=== PATIENT | female | born 1975 | race Caucasian/White ===

== ENCOUNTER 2018-05-27 13:19 | Inpatient (IN) | payer MEDICARE, MEDICAID ==
[~2018-05-27] VITALS: Ht 165.1 cm; Wt 65.3 kg
[~2018-05-27 13:19] MED LIST: DIVA500T52 PO; OLAN10TA3 PO
[2018-05-27 15:12] VITALS: BP 97/59
[2018-05-27] MEDS ORDERED: LORazepam 2 MG TABLET PO PRN (15:30)
[2018-05-27] MEDS ORDERED: HALOPERIDOL 5 MG TABLET PO PRN (15:30)
[2018-05-27] MEDS ORDERED: ZOLPIDEM TARTRATE 10 MG TABLET PO PRN (15:30)
[2018-05-27 16:00] VITALS: BP 106/70
[2018-05-27] MEDS ORDERED: MAGNESIUM HYDROXIDE SUSPENSION 30 ML UDCUP PO PRN (16:30)
[2018-05-27] MEDS ORDERED: LOPERAMIDE HCL 2 MG CAPSULE PO PRN (16:30)
[2018-05-27] MEDS ORDERED: IBUPROFEN 400 MG TABLET PO PRN (16:30)
[2018-05-27] MEDS ORDERED: GuaiFENesin/D-METHORPHAN [SUGAR-FREE] 200-20MG/10 ML SYRUP UDCUP PO PRN (16:30)
[2018-05-27] MEDS ORDERED: ONDANSETRON HCL 4 MG TABLET PO PRN (16:30)
[2018-05-27] MEDS ORDERED: PETROLATUM,WHITE 71 GM JELLY TP PRN (16:30)
[2018-05-27] MEDS ORDERED: ALBUTEROL SULFATE HFA 90 MCG/PUFF 8 GM INHALER IH PRN (16:30)
[2018-05-27] MEDS ORDERED: NICOTINE 14 MG/24 HOUR PATCH TD PRN (16:30)
[2018-05-27] MEDS ORDERED: DOCUSATE SODIUM 100 MG CAPSULE PO PRN (16:30)
[2018-05-27] MEDS ORDERED: MAG HYDROX/AL HYDROX/SIMETH ES 30 ML SUSPENSION UDCUP PO PRN (16:30)
[2018-05-27] MEDS ORDERED: CloNIDine HCL 0.1 MG TABLET PO PRN (16:30)
[2018-05-27] MEDS ORDERED: ACETAMINOPHEN 325 MG TABLET PO PRN (16:30)
[2018-05-27] MEDS ORDERED: PNEUMOCOCCAL VACCINE POLYVALENT 0.5 ML VIAL [PPSV23] IM ONE ×2 (20:30)
[2018-05-27] MEDS: DIVALPROEX SODIUM 500 MG ER TABLET PO SCH (20:36)
[2018-05-28 03:53] VITALS: BP 116/60
[2018-05-28] MEDS: OLANZapine 10 MG TABLET PO SCH ×2 (08:30→17:03)
[2018-05-28 08:32] VITALS: BP 100/60
[2018-05-28 08:53] LABS: BASOPHILS % (AUTO) 0.5 % (0.0-2.0); EOSINOPHILS % (AUTO) 1.2 % (1.0-6.0); HEMATOCRIT 38.1 % (36-46); HEMOGLOBIN 12.7 g/dL (12.0-16.0); LYMPHOCYTES # (AUTO) 2.5 K/uL (1.0-4.8); LYMPHOCYTES % (AUTO) 45.4 % (22.0-44.0); MEAN CORPUSCULAR HEMOGLOBIN 30.3 pg (26.0-34.0); MEAN CORPUSCULAR HGB CONC 33.4 G/dL (31.0-37.0); MEAN CORPUSCULAR VOLUME 91 fL (80-100); MONOCYTES # (AUTO) 0.4 K/uL (0.1-1.0); MONOCYTES % (AUTO) 8.3 % (2.0-9.0); NEUTROPHILS # (AUTO) 2.4 K/uL (1.8-7.7); NEUTROPHILS % (AUTO) 44.6 % (40.0-70.0); PLATELET COUNT (AUTO) 271 K/uL (150-450); RED CELL DISTRIBUTION WIDTH 13.9 % (11.5-14.5)
[2018-05-28 09:24] LABS: ALANINE AMINOTRANSFERASE 20 U/L (12-78); ALBUMIN 3.1 g/dL (3.4-5.0); ALKALINE PHOSPHATASE 73 U/L (46-116); ANION GAP 10 mmol/L (8-16); ASPARTATE AMINOTRANSFERASE 20 U/L (15-37); BILIRUBIN,TOTAL 0.2 mg/dL (0.1-1.0); CALCIUM, TOTAL 8.5 mg/dL (8.8-10.5); CARBON DIOXIDE 26 mmol/L (22-29); CHLORIDE 103 mmol/L (98-107); CHOL/HDL RATIO 2.4 (3.9-5.7); CHOLESTEROL 192 mg/dL (131-200); CREATININE 0.81 mg/dL (0.60-1.30); FREE T4 (FREE THYROXINE) 1.08 ng/dL (0.76-1.46); GLOMERULAR FILTR. RATE CALC > 60 mL/min (>60); GLUCOSE,RANDOM 81 mg/dL (70-110); HCG,QUANTITATIVE < 1 mIU/mL (0-6); HDL CHOLESTEROL 81 mg/dL (40-60); LDL CHOL (CALC.) 95 mg/dL (0-130); SODIUM SERUM 139 mmol/L (136-145); THYROID STIMULATING HORMONE 3.85 uIU/mL (0.36-3.74); TOTAL PROTEIN, SERUM 6.9 g/dL (6.4-8.2); TRIGLYCERIDES 79 mg/dL (15-150); UREA NITROGEN, BLOOD 17 mg/dL (7-18)
[2018-05-28 09:30] LABS: HEMOGLOBIN A1C 4.9 % (4.5-6.2)
[2018-05-28 16:09] VITALS: BP 111/68
[2018-05-28] MEDS: DIVALPROEX SODIUM 500 MG ER TABLET PO SCH (20:37)
[2018-05-29 08:43] VITALS: BP 104/68
[2018-05-29] MEDS: OLANZapine 10 MG TABLET PO SCH ×2 (08:49→16:36)
[2018-05-29 08:57] LABS: APPEARANCE,URINE CLEAR (CLEAR); BILIRUBIN,URINE NEGATIVE (NEGATIVE); GLUCOSE, URINE (UA) NEGATIVE (NEGATIVE); KETONES,URINE TRACE mg/dL (NEGATIVE); LEUKOCYTE ESTERASE ,URINE NEGATIVE (NEGATIVE); NITRATE,URINE NEGATIVE (NEGATIVE); OCCULT BLOOD,URINE NEGATIVE (NEGATIVE); PROTEIN,URINE NEGATIVE (NEGATIVE); UROBILINOGEN,URINE 0.2 mg/dL (<=1.0)
[2018-05-29 09:05] LABS: AMPHET/METH SCREEN,URINE NEGATIVE (NEGATIVE); BARBITURATE SCREEN, URINE NEGATIVE (NEGATIVE); BENZODIAZEPINES SCREEN,URINE NEGATIVE (NEGATIVE); CANNABINOID SCREEN,URINE NEGATIVE (NEGATIVE); COCAINE SCREEN,URINE NEGATIVE (NEGATIVE); METHADONE SCREEN, URINE NEGATIVE (NEGATIVE); OPIATE SCREEN,URINE NEGATIVE (NEGATIVE)
[2018-05-29 09:10] LABS: PHENCYCLIDINE SCREEN,URINE NEGATIVE (NEGATIVE)
[2018-05-29 17:36] VITALS: BP 100/58
[2018-05-29] MEDS: DIVALPROEX SODIUM 500 MG ER TABLET PO SCH (20:41)
[2018-05-30 05:42] VITALS: BP 109/67
[2018-05-30 08:36] VITALS: BP 102/60
[2018-05-30] MEDS: OLANZapine 10 MG TABLET PO SCH ×2 (10:11→16:32)
[2018-05-30 16:14] VITALS: BP 110/63
[2018-05-30] MEDS: DIVALPROEX SODIUM 500 MG ER TABLET PO SCH (20:57)
[2018-05-31 00:17] VITALS: BP 100/71
[2018-05-31] MEDS: OLANZapine 10 MG TABLET PO SCH ×2 (08:36→16:41)
[2018-05-31 16:09] VITALS: BP_SYST 100
[2018-05-31] MEDS: DIVALPROEX SODIUM 500 MG ER TABLET PO SCH (20:35)
[2018-06-01 04:30] VITALS: BP 112/78
[2018-06-01 08:00] VITALS: BP 129/66
[2018-06-01] MEDS: OLANZapine 10 MG TABLET PO SCH (08:08)
== END 2018-06-01 14:50 | disposition home or self-care (01) | DRG 885 ==
LOC: B2X 15:32
PROVIDERS: ADMIT Psychiatry & Neurology Psychiatry; ATTEND Psychiatry & Neurology Psychiatry
DX: F25.0 Schizoaffective disorder, bipolar type (principal); Z28.21 Immunization not carried out because of patient refusal; Z59.0 Homelessness; J45.909 Unspecified asthma, uncomplicated; F41.0 Panic disorder [episodic paroxysmal anxiety]; F17.200 Nicotine dependence, unspecified, uncomplicated; F10.10 Alcohol abuse, uncomplicated; E78.5 Hyperlipidemia, unspecified; E03.9 Hypothyroidism, unspecified; R45.86 Emotional lability; Z71.6 Tobacco abuse counseling
CPT/HCPCS: 80307; 83036; 84439; 84443; 87081

== ENCOUNTER 2021-04-29 15:51 | Emergency (ER) | payer MEDICARE, MEDICAID ==
[~2021-04-29] VITALS: Ht 172.7 cm; Wt 72.7 kg
[~2021-04-29 15:51] MED LIST changes: +DIVA-80 PO; -DIVA500T52 PO; -OLAN10TA3 PO; +OLAN10TA74 PO
[2021-04-29 15:53] VITALS: BP 104/68
[2021-04-29 16:43] LABS: BASOPHILS % (AUTO) 0.5 % (0.0-2.0); EOSINOPHILS % (AUTO) 0.8 % (1.0-6.0); HEMATOCRIT 42.7 % (36-46); HEMOGLOBIN 14.5 g/dL (12.0-16.0); LYMPHOCYTES # (AUTO) 2.4 K/uL (1.0-4.8); LYMPHOCYTES % (AUTO) 35.1 % (22.0-44.0); MEAN CORPUSCULAR HEMOGLOBIN 32.7 pg (26.0-34.0); MEAN CORPUSCULAR VOLUME 96 fL (80-100); MONOCYTES # (AUTO) 0.5 K/uL (0.1-1.0); MONOCYTES % (AUTO) 7.6 % (2.0-9.0); NEUTROPHILS # (AUTO) 3.8 K/uL (1.8-7.7); PLATELET COUNT (AUTO) 205 K/uL (150-450); RED BLOOD CELL COUNT(AUTO) 4.45 MIL/uL (4.00-5.20); RED CELL DISTRIBUTION WIDTH 13.7 % (11.5-14.5)
[2021-04-29 16:52] LABS: AMPHET/METH SCREEN,URINE NEGATIVE (NEGATIVE); BARBITURATE SCREEN, URINE NEGATIVE (NEGATIVE); BENZODIAZEPINES SCREEN,URINE NEGATIVE (NEGATIVE); CANNABINOID SCREEN,URINE NEGATIVE (NEGATIVE); COCAINE SCREEN,URINE NEGATIVE (NEGATIVE); METHADONE SCREEN, URINE NEGATIVE (NEGATIVE); OPIATE SCREEN,URINE NEGATIVE (NEGATIVE)
[2021-04-29 16:52] LABS: ANION GAP 14 mmol/L (8-16); CALCIUM, TOTAL 8.8 mg/dL (8.8-10.5); CARBON DIOXIDE 27 mmol/L (22-29); CHLORIDE 100 mmol/L (98-107); CREATININE 1.06 mg/dL (0.60-1.30); GLOMERULAR FILTR. RATE CALC 56 mL/min (>60); GLUCOSE,RANDOM 107 mg/dL (70-110); POTASSIUM 3.8 mmol/L (3.5-5.1); SODIUM SERUM 141 mmol/L (136-145); UREA NITROGEN, BLOOD 16 mg/dL (7-18)
[2021-04-29 16:53] LABS: PHENCYCLIDINE SCREEN,URINE NEGATIVE (NEGATIVE)
[2021-04-29 17:05] LABS: ALANINE AMINOTRANSFERASE 25 U/L (12-78); ALBUMIN 3.6 g/dL (3.4-5.0); ALKALINE PHOSPHATASE 84 U/L (46-116); ASPARTATE AMINOTRANSFERASE 20 U/L (15-37); BILIRUBIN,TOTAL 0.3 mg/dL (0.1-1.0); HCG,QUANTITATIVE < 1 mIU/mL (0-6); TOTAL PROTEIN, SERUM 7.2 g/dL (6.4-8.2)
[2021-04-29] MEDS ORDERED: LORazepam 1 MG TABLET PO ONE (18:15)
== END 2021-04-29 20:02 | disposition home or self-care (01) ==
LOC: EMS 15:57
DX: F32.9 Major depressive disorder, single episode, unspecified (principal); F17.210 Nicotine dependence, cigarettes, uncomplicated; Z88.0 Allergy status to penicillin; Z88.8 Allergy status to other drugs, medicaments and biological substances
CPT/HCPCS: 36415; 80053; 80307; 84702; 85025; 99284; G0480

== ENCOUNTER 2021-07-19 20:08 | Inpatient (IN) | payer MEDICARE, MEDICAID ==
[~2021-07-19] VITALS: Ht 165.1 cm; Wt 75.7 kg
[2021-07-19] MEDS ORDERED: RISP1TAB48 PO (20:59)
[2021-07-19] MEDS ORDERED: ATOR10TA84 PO (20:59)
[2021-07-19] MEDS ORDERED: PALI410S IM (20:59)
[2021-07-19] MEDS ORDERED: LEVO50 PO (20:59)
[2021-07-19 21:39] LABS: BASOPHILS % (AUTO) 0.6 % (0.0-2.0); EOSINOPHILS % (AUTO) 2.1 % (1.0-6.0); HEMATOCRIT 36.6 % (36-46); HEMOGLOBIN 12.4 g/dL (12.0-16.0); LYMPHOCYTES # (AUTO) 2.2 K/uL (1.0-4.8); LYMPHOCYTES % (AUTO) 35.2 % (22.0-44.0); MEAN CORPUSCULAR HEMOGLOBIN 32.6 pg (26.0-34.0); MEAN CORPUSCULAR HGB CONC 33.8 G/dL (31.0-37.0); MEAN CORPUSCULAR VOLUME 96 fL (80-100); MONOCYTES # (AUTO) 0.6 K/uL (0.1-1.0); MONOCYTES % (AUTO) 9.5 % (2.0-9.0); NEUTROPHILS # (AUTO) 3.3 K/uL (1.8-7.7); NEUTROPHILS % (AUTO) 52.6 % (40.0-70.0); PLATELET COUNT (AUTO) 229 K/uL (150-450); RED BLOOD CELL COUNT(AUTO) 3.81 MIL/uL (4.00-5.20); RED CELL DISTRIBUTION WIDTH 13.3 % (11.5-14.5)
[2021-07-19 21:48] LABS: ANION GAP 8 mmol/L (8-16); CALCIUM, TOTAL 8.7 mg/dL (8.8-10.5); CARBON DIOXIDE 27 mmol/L (22-29); CHLORIDE 107 mmol/L (98-107); CREATININE 0.65 mg/dL (0.60-1.30); GLOMERULAR FILTR. RATE CALC > 60 mL/min (>60); GLUCOSE,RANDOM 94 mg/dL (70-110); POTASSIUM 3.8 mmol/L (3.5-5.1); SODIUM SERUM 142 mmol/L (136-145); UREA NITROGEN, BLOOD 7 mg/dL (7-18)
[2021-07-19 21:54] LABS: ALANINE AMINOTRANSFERASE 24 U/L (12-78); ALBUMIN 3.2 g/dL (3.4-5.0); ALKALINE PHOSPHATASE 104 U/L (46-116); ASPARTATE AMINOTRANSFERASE 21 U/L (15-37); BILIRUBIN,TOTAL 0.2 mg/dL (0.1-1.0); TOTAL PROTEIN, SERUM 6.6 g/dL (6.4-8.2)
[2021-07-19 22:34] LABS: AMPHET/METH SCREEN,URINE NEGATIVE (NEGATIVE); BARBITURATE SCREEN, URINE NEGATIVE (NEGATIVE); BENZODIAZEPINES SCREEN,URINE NEGATIVE (NEGATIVE); CANNABINOID SCREEN,URINE NEGATIVE (NEGATIVE); COCAINE SCREEN,URINE NEGATIVE (NEGATIVE); METHADONE SCREEN, URINE NEGATIVE (NEGATIVE); OPIATE SCREEN,URINE NEGATIVE (NEGATIVE); PHENCYCLIDINE SCREEN,URINE NEGATIVE (NEGATIVE)
[2021-07-19 22:38] LABS: COVID AG,FIA SOURCE NASOPHARYNGEAL
[2021-07-19] MEDS ORDERED: ZOLPIDEM TARTRATE 10 MG TABLET PO PRN (23:15)
[2021-07-20 00:20] VITALS: BP 151/89
[2021-07-20] MEDS: LORazepam 2 MG TABLET PO PRN ×2 (00:33→16:58)
[2021-07-20 02:04] LABS: CHOLESTEROL 176 mg/dL (131-200); TRIGLYCERIDES 70 mg/dL (15-150)
[2021-07-20 02:17] LABS: CHOL/HDL RATIO 2.3 (3.9-5.7); HDL CHOLESTEROL 78 mg/dL (40-60); LDL CHOL (CALC.) 84 mg/dL (0-130)
[2021-07-20] MEDS ORDERED: INFLUENZA VIRUS VACCINE QVS 2021-22 (6MO+)/PF 60 MCG/0.5 ML SYRINGE IM. ONE (02:30)
[2021-07-20 02:54] LABS: APPEARANCE,URINE CLEAR (CLEAR); BILIRUBIN,URINE NEGATIVE (NEGATIVE); GLUCOSE, URINE (UA) NEGATIVE (NEGATIVE); KETONES,URINE NEGATIVE (NEGATIVE); LEUKOCYTE ESTERASE ,URINE NEGATIVE (NEGATIVE); NITRATE,URINE NEGATIVE (NEGATIVE); OCCULT BLOOD,URINE NEGATIVE (NEGATIVE); PH,URINE 6.5 (5.0-8.0); PROTEIN,URINE NEGATIVE (NEGATIVE); UROBILINOGEN,URINE 0.2 mg/dL (<=1.0)
[2021-07-20 10:14] VITALS: BP 114/65
[2021-07-20] MEDS ORDERED: CloNIDine HCL 0.1 MG TABLET PO PRN (11:30)
[2021-07-20] MEDS ORDERED: MAG HYDROX/AL HYDROX/SIMETH ES 30 ML SUSPENSION UDCUP PO PRN (11:30)
[2021-07-20] MEDS ORDERED: MAGNESIUM HYDROXIDE SUSPENSION 30 ML UDCUP PO PRN (11:30)
[2021-07-20] MEDS ORDERED: PETROLATUM,WHITE 28 GM JELLY TP PRN (11:30)
[2021-07-20] MEDS ORDERED: GuaiFENesin/D-METHORPHAN [SUGAR-FREE] 200-20MG/10 ML SYRUP UDCUP PO PRN (11:30)
[2021-07-20] MEDS ORDERED: NICOTINE 14 MG/24 HOUR PATCH TD PRN (11:30)
[2021-07-20] MEDS ORDERED: ACETAMINOPHEN 325 MG TABLET PO PRN (11:30)
[2021-07-20] MEDS ORDERED: IBUPROFEN 400 MG TABLET PO PRN (11:30)
[2021-07-20] MEDS ORDERED: ALBUTEROL SULFATE HFA 90 MCG/PUFF 8 GM INHALER IH PRN (11:30)
[2021-07-20] MEDS ORDERED: DOCUSATE SODIUM 100 MG CAPSULE PO PRN (11:30)
[2021-07-20] MEDS ORDERED: ONDANSETRON HCL 4 MG TABLET PO PRN (11:30)
[2021-07-20] MEDS: RisperiDONE 1 MG TABLET PO SCH (20:27)
[2021-07-21] MEDS: LEVOTHYROXINE SODIUM 50 MCG TABLET PO SCH (06:41)
[2021-07-21] MEDS: ATORVASTATIN CALCIUM 10 MG TABLET PO SCH (08:10)
[2021-07-21] MEDS: RisperiDONE 1 MG TABLET PO SCH ×2 (08:10→20:47)
[2021-07-21] MEDS: LORazepam 2 MG TABLET PO PRN ×2 (08:29→17:31)
[2021-07-21 08:34] VITALS: BP 112/70
[2021-07-21 09:08] VITALS: BP 112/70
[2021-07-21 16:02] VITALS: BP 120/83
[2021-07-22] MEDS: HALOPERIDOL 5 MG TABLET PO PRN (03:10)
[2021-07-22] MEDS: LEVOTHYROXINE SODIUM 50 MCG TABLET PO SCH (06:00)
[2021-07-22] MEDS: ATORVASTATIN CALCIUM 10 MG TABLET PO SCH (08:29)
[2021-07-22] MEDS: RisperiDONE 1 MG TABLET PO SCH ×2 (08:29→20:41)
[2021-07-22 08:55] VITALS: BP 103/71
[2021-07-22 16:41] VITALS: BP 114/74
[2021-07-22] MEDS: LORazepam 2 MG TABLET PO PRN (17:24)
[2021-07-23] MEDS: LEVOTHYROXINE SODIUM 50 MCG TABLET PO SCH (06:00)
[2021-07-23] MEDS: RisperiDONE 1 MG TABLET PO SCH ×2 (09:29→20:07)
[2021-07-23] MEDS: ATORVASTATIN CALCIUM 10 MG TABLET PO SCH (09:29)
[2021-07-23] MEDS: LORazepam 2 MG TABLET PO PRN (13:28)
[2021-07-24] MEDS: LEVOTHYROXINE SODIUM 50 MCG TABLET PO SCH (06:03)
[2021-07-24 09:00] VITALS: BP 99/66
[2021-07-24] MEDS: ATORVASTATIN CALCIUM 10 MG TABLET PO SCH (09:04)
[2021-07-24] MEDS: RisperiDONE 1 MG TABLET PO SCH ×2 (09:04→20:07)
[2021-07-24] MEDS: LOPERAMIDE HCL 2 MG CAPSULE PO PRN (14:33)
[2021-07-24 16:11] VITALS: BP 126/87
[2021-07-24] MEDS: LORazepam 2 MG TABLET PO PRN (16:37)
[2021-07-25 00:30] VITALS: BP 106/62
[2021-07-25] MEDS: LORazepam 2 MG TABLET PO PRN (04:10)
[2021-07-25] MEDS: LOPERAMIDE HCL 2 MG CAPSULE PO PRN ×2 (04:10→16:57)
[2021-07-25] MEDS: LEVOTHYROXINE SODIUM 50 MCG TABLET PO SCH (06:11)
[2021-07-25 08:52] VITALS: BP 100/70
[2021-07-25] MEDS: RisperiDONE 1 MG TABLET PO SCH (10:22)
[2021-07-25] MEDS: ATORVASTATIN CALCIUM 10 MG TABLET PO SCH (10:22)
[2021-07-25 15:16] LABS: COVID AG,FIA SOURCE NASOPHARYNGEAL
[2021-07-25 16:07] VITALS: BP 110/63
[2021-07-25] MEDS: RisperiDONE 2 MG TABLET PO SCH (20:18)
[2021-07-26 02:25] VITALS: BP 16/67
[2021-07-26] MEDS: LORazepam 2 MG TABLET PO PRN ×2 (05:40→16:29)
[2021-07-26 05:42] VITALS: BP 115/85
[2021-07-26] MEDS: LEVOTHYROXINE SODIUM 50 MCG TABLET PO SCH (06:26)
[2021-07-26 08:50] VITALS: BP 101/54
[2021-07-26] MEDS: RisperiDONE 2 MG TABLET PO SCH ×2 (08:58→20:33)
[2021-07-26] MEDS: ATORVASTATIN CALCIUM 10 MG TABLET PO SCH (08:59)
[2021-07-26 16:29] VITALS: BP 100/69
[2021-07-26 16:50] VITALS: BP 100/69
[2021-07-26] MEDS: HALOPERIDOL 5 MG TABLET PO PRN (17:42)
[2021-07-27 02:00] VITALS: BP 118/80
[2021-07-27] MEDS: LEVOTHYROXINE SODIUM 50 MCG TABLET PO SCH (06:33)
[2021-07-27] MEDS: ATORVASTATIN CALCIUM 10 MG TABLET PO SCH (08:08)
[2021-07-27] MEDS: RisperiDONE 2 MG TABLET PO SCH ×2 (08:09→20:44)
[2021-07-27 08:52] VITALS: BP 106/75
[2021-07-27] MEDS: LORazepam 2 MG TABLET PO PRN (09:45)
[2021-07-27 16:27] VITALS: BP 99/65
[2021-07-28 05:08] VITALS: BP 107/70
[2021-07-28] MEDS: LEVOTHYROXINE SODIUM 50 MCG TABLET PO SCH (06:28)
[2021-07-28 08:17] VITALS: BP 114/87
[2021-07-28] MEDS: RisperiDONE 2 MG TABLET PO SCH ×2 (09:52→20:08)
[2021-07-28] MEDS: ATORVASTATIN CALCIUM 10 MG TABLET PO SCH (09:52)
[2021-07-28] MEDS: LORazepam 2 MG TABLET PO PRN (10:29)
[2021-07-28 16:05] VITALS: BP 126/78
[2021-07-29 03:30] VITALS: BP 106/80
[2021-07-29] MEDS: LEVOTHYROXINE SODIUM 50 MCG TABLET PO SCH (06:08)
[2021-07-29] MEDS: ATORVASTATIN CALCIUM 10 MG TABLET PO SCH (08:41)
[2021-07-29] MEDS: RisperiDONE 2 MG TABLET PO SCH ×2 (08:41→20:40)
[2021-07-29 10:36] VITALS: BP 98/66
[2021-07-29 16:29] VITALS: BP 106/64
[2021-07-29] MEDS: HALOPERIDOL 5 MG TABLET PO PRN (20:40)
[2021-07-30 05:29] VITALS: BP 108/70
[2021-07-30] MEDS: LEVOTHYROXINE SODIUM 50 MCG TABLET PO SCH (06:21)
[2021-07-30 08:00] VITALS: BP 147/80
[2021-07-30] MEDS: RisperiDONE 2 MG TABLET PO SCH ×2 (08:04→20:47)
[2021-07-30] MEDS: ATORVASTATIN CALCIUM 10 MG TABLET PO SCH (08:05)
[2021-07-30 16:27] VITALS: BP 132/71
[2021-07-30 20:47] VITALS: BP 128/82
[2021-07-30] MEDS: HALOPERIDOL 5 MG TABLET PO PRN (20:47)
[2021-07-30] MEDS: LORazepam 2 MG TABLET PO PRN (20:47)
[2021-07-31] MEDS: LEVOTHYROXINE SODIUM 50 MCG TABLET PO SCH (06:44)
[2021-07-31 08:05] VITALS: BP 111/69
[2021-07-31] MEDS: ATORVASTATIN CALCIUM 10 MG TABLET PO SCH (08:52)
[2021-07-31] MEDS: RisperiDONE 2 MG TABLET PO SCH ×2 (08:53→20:29)
[2021-07-31 16:58] VITALS: BP 109/99
[2021-08-01] MEDS: LEVOTHYROXINE SODIUM 50 MCG TABLET PO SCH (06:42)
[2021-08-01] MEDS: ATORVASTATIN CALCIUM 10 MG TABLET PO SCH (08:26)
[2021-08-01] MEDS: RisperiDONE 2 MG TABLET PO SCH (08:26)
[2021-08-01] MEDS ORDERED: RISP1TAB48 PO (10:07)
[2021-08-01] MEDS ORDERED: LEVO50 PO (10:07)
[2021-08-01] MEDS ORDERED: ATOR10TA84 PO (10:07)
[2021-08-01 10:53] VITALS: BP 104/58
[2021-08-01 11:15] LABS: COVID AG,FIA SOURCE NASOPHARYNGEAL
== END 2021-08-01 14:45 | disposition home or self-care (01) | DRG 885 ==
LOC: EMS 20:11 → 3EX 23:56
PROVIDERS: ADMIT Psychiatry & Neurology Psychiatry; ATTEND Psychiatry & Neurology Psychiatry
DX: F31.4 Bipolar disorder, current episode depressed, severe, without psychotic features (principal); R45.851 Suicidal ideations; E03.9 Hypothyroidism, unspecified; E78.5 Hyperlipidemia, unspecified; F17.200 Nicotine dependence, unspecified, uncomplicated; F20.9 Schizophrenia, unspecified; F41.9 Anxiety disorder, unspecified; Z65.3 Problems related to other legal circumstances; Z79.899 Other long term (current) drug therapy; Z88.8 Allergy status to other drugs, medicaments and biological substances; Z20.822 Contact with and (suspected) exposure to COVID-19
CPT/HCPCS: 80053; 80061; 81003; 83036; 84703; 85025; 87081; 99285; G0378; G0480

== ENCOUNTER 2022-03-31 23:59 | Emergency (ER) | payer MEDICARE, MEDICAID ==
[~2022-03-31] VITALS: Ht 165.1 cm; Wt 72.0 kg
[~2022-03-31 23:59] MED LIST changes: +ARIP10TA38 PO; -DIVA-80 PO; -OLAN10TA74 PO; +TRAZ-252 PO
[2022-04-01 00:37] VITALS: BP 124/70
[2022-04-01] MEDS ORDERED: DIAZEPAM 5 MG TABLET PO ONE (00:45)
== END 2022-04-01 01:15 | disposition home or self-care (01) ==
LOC: EMS 04-01 00:11
DX: F41.0 Panic disorder [episodic paroxysmal anxiety] (principal); F40.00 Agoraphobia, unspecified; F31.9 Bipolar disorder, unspecified; E03.9 Hypothyroidism, unspecified; F20.9 Schizophrenia, unspecified; F17.210 Nicotine dependence, cigarettes, uncomplicated; Z98.890 Other specified postprocedural states; Z88.0 Allergy status to penicillin; Z88.8 Allergy status to other drugs, medicaments and biological substances
CPT/HCPCS: 99283

== ENCOUNTER 2022-04-18 21:18 | Inpatient (IN) | payer MEDICARE, MEDICAID ==
[~2022-04-18] VITALS: Ht 165.1 cm; Wt 72.6 kg
[2022-04-18 23:53] LABS: BASOPHILS % (AUTO) 0.6 % (0.0-2.0); EOSINOPHILS % (AUTO) 0.5 % (1.0-6.0); HEMATOCRIT 38.6 % (36-46); HEMOGLOBIN 13.3 g/dL (12.0-16.0); LYMPHOCYTES # (AUTO) 2.4 K/uL (1.0-4.8); LYMPHOCYTES % (AUTO) 33.1 % (22.0-44.0); MEAN CORPUSCULAR HGB CONC 34.5 G/dL (31.0-37.0); MEAN CORPUSCULAR VOLUME 93 fL (80-100); MONOCYTES # (AUTO) 0.4 K/uL (0.1-1.0); MONOCYTES % (AUTO) 5.9 % (2.0-9.0); NEUTROPHILS # (AUTO) 4.4 K/uL (1.8-7.7); NEUTROPHILS % (AUTO) 59.9 % (40.0-70.0); PLATELET COUNT (AUTO) 203 K/uL (150-450); RED BLOOD CELL COUNT(AUTO) 4.16 MIL/uL (4.00-5.20); RED CELL DISTRIBUTION WIDTH 14.4 % (11.5-14.5)
[2022-04-19] LABS: ANION GAP 9 mmol/L (8-16); CALCIUM, TOTAL 8.9 mg/dL (8.8-10.5); CARBON DIOXIDE 26 mmol/L (22-29); CHLORIDE 103 mmol/L (98-107); CREATININE 0.74 mg/dL (0.60-1.30); GLUCOSE,RANDOM 90 mg/dL (70-110); POTASSIUM 3.6 mmol/L (3.5-5.1); SODIUM SERUM 138 mmol/L (136-145); UREA NITROGEN, BLOOD 6 mg/dL (7-18)
[2022-04-19 00:02] LABS: GLOMERULAR FILTR. RATE CALC > 60 mL/min (>60)
[2022-04-19] MEDS ORDERED: ZOLPIDEM TARTRATE 10 MG TABLET PO PRN (00:15)
[2022-04-19 00:16] LABS: ALANINE AMINOTRANSFERASE 21 U/L (12-78); ALBUMIN 3.7 g/dL (3.4-5.0); ALKALINE PHOSPHATASE 74 U/L (46-116); ASPARTATE AMINOTRANSFERASE 20 U/L (15-37); BILIRUBIN,TOTAL 0.6 mg/dL (0.1-1.0); HCG,QUANTITATIVE < 1 mIU/mL (0-6)
[2022-04-19 00:38] LABS: COVID AG,FIA SOURCE NASAL SWAB
[2022-04-19] MEDS: LORazepam 2 MG TABLET PO PRN ×2 (04:33→17:11)
[2022-04-19 04:56] VITALS: BP 111/78
[2022-04-19 08:17] VITALS: BP 100/61
[2022-04-19] MEDS ORDERED: DOCUSATE SODIUM 100 MG CAPSULE PO PRN (10:45)
[2022-04-19] MEDS ORDERED: ALBUTEROL SULFATE HFA 90 MCG/PUFF 8 GM INHALER IH PRN (10:45)
[2022-04-19] MEDS ORDERED: IBUPROFEN 400 MG TABLET PO PRN (10:45)
[2022-04-19] MEDS ORDERED: LOPERAMIDE HCL 2 MG CAPSULE PO PRN (10:45)
[2022-04-19] MEDS ORDERED: ONDANSETRON HCL 4 MG TABLET PO PRN (10:45)
[2022-04-19] MEDS ORDERED: PETROLATUM,WHITE 28 GM JELLY TP PRN (10:45)
[2022-04-19] MEDS ORDERED: CloNIDine HCL 0.1 MG TABLET PO PRN (10:45)
[2022-04-19] MEDS ORDERED: MAGNESIUM HYDROXIDE SUSPENSION 30 ML UDCUP PO PRN (10:45)
[2022-04-19] MEDS ORDERED: ACETAMINOPHEN 325 MG TABLET PO PRN (10:45)
[2022-04-19] MEDS ORDERED: MAG HYDROX/AL HYDROX/SIMETH ES 30 ML SUSPENSION UDCUP PO PRN (10:45)
[2022-04-19] MEDS ORDERED: NICOTINE 14 MG/24 HOUR PATCH TD PRN (10:45)
[2022-04-19] MEDS ORDERED: GuaiFENesin/D-METHORPHAN [SUGAR-FREE] 200-20MG/10 ML SYRUP UDCUP PO PRN (10:45)
[2022-04-19] MEDS ORDERED: HYDR50CA6 PO (14:36)
[2022-04-19 20:09] VITALS: BP 103/60
[2022-04-19] MEDS: ARIPiprazole 10 MG TABLET PO SCH (20:37)
[2022-04-19] MEDS: TraZODone HCL 50 MG TABLET PO SCH (20:38)
[2022-04-20 05:18] VITALS: BP 110/75
[2022-04-20] MEDS: LORazepam 2 MG TABLET PO PRN (05:24)
[2022-04-20 08:26] VITALS: BP 97/71
[2022-04-20] MEDS: HALOPERIDOL 5 MG TABLET PO PRN ×2 (09:48→19:08)
[2022-04-20] MEDS: ALOE VERA 100% 360 ML GEL TP SCH (09:49)
[2022-04-20 20:53] VITALS: BP 106/74
[2022-04-20] MEDS: TraZODone HCL 50 MG TABLET PO SCH (21:08)
[2022-04-20] MEDS: ARIPiprazole 10 MG TABLET PO SCH (21:08)
[2022-04-21 08:30] VITALS: BP 97/70
[2022-04-21] MEDS: HALOPERIDOL 5 MG TABLET PO PRN (11:22)
[2022-04-21] MEDS: ALOE VERA 100% 360 ML GEL TP SCH (11:23)
[2022-04-21] MEDS: ARIPiprazole 10 MG TABLET PO SCH (21:13)
[2022-04-21] MEDS: TraZODone HCL 50 MG TABLET PO SCH (21:14)
[2022-04-21 21:39] VITALS: BP 102/73
[2022-04-22] MEDS: LEVOTHYROXINE SODIUM 50 MCG TABLET PO SCH (06:15)
[2022-04-22 08:30] VITALS: BP 106/64
[2022-04-22] MEDS: ALOE VERA 100% 360 ML GEL TP SCH (10:25)
[2022-04-22] MEDS: HydrOXYzine PAMOATE 50 MG CAPSULE PO PRN (16:57)
[2022-04-22 20:09] VITALS: BP 106/69
[2022-04-22] MEDS: TraZODone HCL 50 MG TABLET PO SCH (20:29)
[2022-04-22] MEDS: ARIPiprazole 10 MG TABLET PO SCH (20:29)
[2022-04-23] MEDS: LEVOTHYROXINE SODIUM 50 MCG TABLET PO SCH (06:26)
[2022-04-23 08:14] VITALS: BP 109/85
[2022-04-23] MEDS: HydrOXYzine PAMOATE 50 MG CAPSULE PO PRN ×2 (08:57→16:03)
[2022-04-23] MEDS: ALOE VERA 100% 360 ML GEL TP SCH (08:57)
[2022-04-23 20:06] VITALS: BP 106/70
[2022-04-23] MEDS: ARIPiprazole 10 MG TABLET PO SCH (20:09)
[2022-04-23] MEDS: TraZODone HCL 50 MG TABLET PO SCH (20:10)
[2022-04-24 04:29] VITALS: BP 110/78
[2022-04-24] MEDS: LEVOTHYROXINE SODIUM 50 MCG TABLET PO SCH (05:59)
[2022-04-24 08:02] VITALS: BP 118/80
[2022-04-24] MEDS: HydrOXYzine PAMOATE 50 MG CAPSULE PO PRN (09:28)
[2022-04-24] MEDS: ALOE VERA 100% 360 ML GEL TP SCH (09:28)
[2022-04-24 20:40] VITALS: BP 103/74
[2022-04-24] MEDS: ARIPiprazole 10 MG TABLET PO SCH (21:02)
[2022-04-24] MEDS: TraZODone HCL 50 MG TABLET PO SCH (21:02)
[2022-04-25] MEDS: LEVOTHYROXINE SODIUM 50 MCG TABLET PO SCH (06:21)
[2022-04-25 08:10] VITALS: BP 109/63
[2022-04-25] MEDS: ALOE VERA 100% 360 ML GEL TP SCH (08:11)
[2022-04-25] MEDS: HydrOXYzine PAMOATE 50 MG CAPSULE PO PRN (09:55)
[2022-04-25] MEDS ORDERED: TRAZ-252 PO (11:07)
[2022-04-25] MEDS ORDERED: LEVO50 PO (11:07)
[2022-04-25] MEDS ORDERED: ARIP10TA38 PO (11:07)
[2022-04-25] MEDS ORDERED: HYDR50CA6 PO (11:07)
[2022-04-26 04:06] LABS: HIV 1-2 SCREEN 4TH GEN W/RFLX Non Reactive (Non Reactive)
== END 2022-04-25 15:01 | disposition home or self-care (01) | DRG 885 ==
LOC: EMS 21:25 → B3A 04-19 03:28 → UNDOADMIN 04-19 03:28 → B3A 04-19 09:20 → B2X 04-19 09:20
PROVIDERS: ADMIT Psychiatry & Neurology Psychiatry; ATTEND Psychiatry & Neurology Psychiatry
DX: F25.1 Schizoaffective disorder, depressive type (principal); R45.851 Suicidal ideations; E78.5 Hyperlipidemia, unspecified; E03.9 Hypothyroidism, unspecified; J45.909 Unspecified asthma, uncomplicated; F43.12 Post-traumatic stress disorder, chronic; Z20.822 Contact with and (suspected) exposure to COVID-19; Z87.891 Personal history of nicotine dependence; Z79.899 Other long term (current) drug therapy; Z59.00 Homelessness unspecified
CPT/HCPCS: 80053; 84443; 84702; 85025; 86631; 87389; 99285; G0480

== ENCOUNTER 2022-05-15 22:21 | Emergency (ER) | payer MEDICARE, MEDICAID ==
[~2022-05-15] VITALS: Ht 172.7 cm; Wt 77.3 kg
[~2022-05-15 22:21] MED LIST changes: +HYDR50CA6 PO; +LEVO50 PO
[2022-05-15 22:24] VITALS: BP 115/78
[2022-05-16] MEDS ORDERED: HYDR-4808 PO (23:44)
== END 2022-05-16 01:37 | disposition left against medical advice (07) ==
LOC: EMS 22:23
DX: F31.9 Bipolar disorder, unspecified (principal); Z53.21 Procedure and treatment not carried out due to patient leaving prior to being seen by health care provider

== ENCOUNTER 2022-05-16 21:16 | Emergency (ER) | payer MEDICARE, MEDICAID ==
[~2022-05-16] VITALS: Ht 172.7 cm; Wt 77.3 kg
[2022-05-16] MEDS ORDERED: HYDR-4808 PO (23:44)
[2022-05-17 00:11] VITALS: BP 100/60
== END 2022-05-17 00:18 | disposition home or self-care (01) ==
LOC: EMS 21:17
DX: F41.9 Anxiety disorder, unspecified (principal); F31.9 Bipolar disorder, unspecified; E03.9 Hypothyroidism, unspecified; F20.9 Schizophrenia, unspecified; F17.210 Nicotine dependence, cigarettes, uncomplicated; Z86.59 Personal history of other mental and behavioral disorders; Z98.890 Other specified postprocedural states; Z88.0 Allergy status to penicillin; Z88.8 Allergy status to other drugs, medicaments and biological substances
CPT/HCPCS: 99283; Z7502

== ENCOUNTER 2022-05-18 19:07 | Inpatient (IN) | payer MEDICARE, MEDICAID ==
[~2022-05-18] VITALS: Ht 167.6 cm; Wt 75.7 kg
[~2022-05-18 19:07] MED LIST changes: +HYDR-4808 PO
[2022-05-18] MEDS ORDERED: LORazepam 1 MG TABLET PO ONE (20:00)
[2022-05-18] MEDS ORDERED: HydrOXYzine PAMOATE 25 MG CAPSULE PO ONE (20:00)
[2022-05-18 21:30] LABS: BASOPHILS % (AUTO) 0.4 % (0.0-2.0); EOSINOPHILS % (AUTO) 0.7 % (1.0-6.0); HEMATOCRIT 39.7 % (36-46); HEMOGLOBIN 13.7 g/dL (12.0-16.0); LYMPHOCYTES # (AUTO) 2.7 K/uL (1.0-4.8); LYMPHOCYTES % (AUTO) 37.7 % (22.0-44.0); MEAN CORPUSCULAR HEMOGLOBIN 31.9 pg (26.0-34.0); MEAN CORPUSCULAR HGB CONC 34.5 G/dL (31.0-37.0); MEAN CORPUSCULAR VOLUME 92 fL (80-100); MONOCYTES # (AUTO) 0.4 K/uL (0.1-1.0); NEUTROPHILS # (AUTO) 3.9 K/uL (1.8-7.7); NEUTROPHILS % (AUTO) 55.2 % (40.0-70.0); PLATELET COUNT (AUTO) 242 K/uL (150-450); RED CELL DISTRIBUTION WIDTH 14.3 % (11.5-14.5)
[2022-05-18 21:39] LABS: ANION GAP 6 mmol/L (8-16); CALCIUM, TOTAL 9.1 mg/dL (8.8-10.5); CARBON DIOXIDE 30 mmol/L (22-29); CHLORIDE 102 mmol/L (98-107); GLOMERULAR FILTR. RATE CALC > 60 mL/min (>60); GLUCOSE,RANDOM 75 mg/dL (70-110); POTASSIUM 3.6 mmol/L (3.5-5.1); SODIUM SERUM 138 mmol/L (136-145); UREA NITROGEN, BLOOD 9 mg/dL (7-18)
[2022-05-18 21:47] LABS: ALANINE AMINOTRANSFERASE 24 U/L (12-78); ALBUMIN 3.9 g/dL (3.4-5.0); ALKALINE PHOSPHATASE 85 U/L (46-116); ASPARTATE AMINOTRANSFERASE 16 U/L (15-37); BILIRUBIN,TOTAL 0.3 mg/dL (0.1-1.0); TOTAL PROTEIN, SERUM 7.6 g/dL (6.4-8.2)
[2022-05-18] MEDS ORDERED: LORazepam 2 MG TABLET PO PRN (23:45)
[2022-05-18] MEDS ORDERED: ZOLPIDEM TARTRATE 10 MG TABLET PO PRN (23:45)
[2022-05-19 03:11] LABS: COVID AG,FIA SOURCE NASAL SWAB
[2022-05-19 04:49] VITALS: BP 104/60
[2022-05-19] MEDS ORDERED: PNEUMOCOCCAL VACCINE POLYVALENT 0.5 ML VIAL [PPSV23] IM. ONE (05:15)
[2022-05-19] MEDS ORDERED: NICOTINE 14 MG/24 HOUR PATCH TD PRN (08:30)
[2022-05-19] MEDS ORDERED: MAGNESIUM HYDROXIDE SUSPENSION 30 ML UDCUP PO PRN (08:30)
[2022-05-19] MEDS ORDERED: DOCUSATE SODIUM 100 MG CAPSULE PO PRN (08:30)
[2022-05-19] MEDS ORDERED: LOPERAMIDE HCL 2 MG CAPSULE PO PRN (08:30)
[2022-05-19] MEDS ORDERED: PETROLATUM,WHITE 28 GM JELLY TP PRN (08:30)
[2022-05-19] MEDS ORDERED: IBUPROFEN 400 MG TABLET PO PRN (08:30)
[2022-05-19] MEDS ORDERED: MAG HYDROX/AL HYDROX/SIMETH ES 30 ML SUSPENSION UDCUP PO PRN (08:30)
[2022-05-19] MEDS ORDERED: ALBUTEROL SULFATE HFA 90 MCG/PUFF 8 GM INHALER IH PRN (08:30)
[2022-05-19] MEDS ORDERED: CloNIDine HCL 0.1 MG TABLET PO PRN (08:30)
[2022-05-19] MEDS ORDERED: ACETAMINOPHEN 325 MG TABLET PO PRN (08:30)
[2022-05-19] MEDS ORDERED: GuaiFENesin/D-METHORPHAN [SUGAR-FREE] 200-20MG/10 ML SYRUP UDCUP PO PRN (08:30)
[2022-05-19] MEDS ORDERED: ONDANSETRON HCL 4 MG TABLET PO PRN (08:30)
[2022-05-19 10:10] VITALS: BP 113/69
[2022-05-19] MEDS: HydrOXYzine PAMOATE 50 MG CAPSULE PO SCH ×2 (14:41→17:48)
[2022-05-19 20:05] VITALS: BP 100/60
[2022-05-19] MEDS: TraZODone HCL 50 MG TABLET PO SCH (20:23)
[2022-05-19] MEDS: ARIPiprazole 10 MG TABLET PO SCH (20:23)
[2022-05-20] MEDS: LEVOTHYROXINE SODIUM 50 MCG TABLET PO SCH (06:34)
[2022-05-20] MEDS: HydrOXYzine PAMOATE 50 MG CAPSULE PO SCH ×3 (08:51→16:40)
[2022-05-20] MEDS: HALOPERIDOL 5 MG TABLET PO PRN (09:36)
[2022-05-20 11:03] VITALS: BP 100/70
[2022-05-20] MEDS: TraZODone HCL 50 MG TABLET PO SCH (20:26)
[2022-05-20] MEDS: ARIPiprazole 10 MG TABLET PO SCH (20:26)
[2022-05-20 20:50] VITALS: BP 101/68
[2022-05-21] MEDS: LEVOTHYROXINE SODIUM 50 MCG TABLET PO SCH (06:37)
[2022-05-21] MEDS: HydrOXYzine PAMOATE 50 MG CAPSULE PO SCH ×3 (08:30→16:37)
[2022-05-21 08:53] VITALS: BP 104/66
[2022-05-21] MEDS: TraZODone HCL 50 MG TABLET PO SCH (20:35)
[2022-05-21] MEDS: ARIPiprazole 10 MG TABLET PO SCH (20:35)
[2022-05-21 21:09] VITALS: BP 108/68
[2022-05-22] MEDS: LEVOTHYROXINE SODIUM 50 MCG TABLET PO SCH (06:31)
[2022-05-22] MEDS: HydrOXYzine PAMOATE 50 MG CAPSULE PO SCH ×3 (08:25→16:34)
[2022-05-22 08:27] VITALS: BP 109/67
[2022-05-22] MEDS: HALOPERIDOL 5 MG TABLET PO PRN ×2 (09:57→13:14)
[2022-05-22 20:16] VITALS: BP 102/61
[2022-05-22] MEDS: ARIPiprazole 10 MG TABLET PO SCH (20:31)
[2022-05-22] MEDS: TraZODone HCL 50 MG TABLET PO SCH (20:31)
[2022-05-23] MEDS: LEVOTHYROXINE SODIUM 50 MCG TABLET PO SCH (06:11)
[2022-05-23] MEDS: HydrOXYzine PAMOATE 50 MG CAPSULE PO SCH ×3 (08:09→16:26)
[2022-05-23] MEDS: HALOPERIDOL 5 MG TABLET PO PRN ×2 (08:09→16:26)
[2022-05-23 08:12] VITALS: BP 113/71
[2022-05-23 20:25] VITALS: BP 92/61
[2022-05-23] MEDS: TraZODone HCL 50 MG TABLET PO SCH (21:00)
[2022-05-23] MEDS: ARIPiprazole 10 MG TABLET PO SCH (21:00)
[2022-05-24] MEDS: LEVOTHYROXINE SODIUM 50 MCG TABLET PO SCH (06:54)
[2022-05-24] MEDS: HydrOXYzine PAMOATE 50 MG CAPSULE PO SCH ×3 (08:17→16:41)
[2022-05-24] MEDS: HALOPERIDOL 5 MG TABLET PO PRN (08:17)
[2022-05-24 08:23] VITALS: BP 110/87
[2022-05-24 08:51] LABS: GLUCOMETER DEV NAME(LOC) POC.BV
[2022-05-24 20:00] VITALS: BP 105/60
[2022-05-24] MEDS: TraZODone HCL 50 MG TABLET PO SCH (20:49)
[2022-05-24] MEDS: ARIPiprazole 10 MG TABLET PO SCH (20:49)
[2022-05-25] MEDS: LEVOTHYROXINE SODIUM 50 MCG TABLET PO SCH (06:31)
[2022-05-25] MEDS: HydrOXYzine PAMOATE 50 MG CAPSULE PO SCH ×3 (09:01→17:37)
[2022-05-25 09:07] LABS: CHOL/HDL RATIO 2.9 (3.9-5.7)
[2022-05-25] MEDS: ARIPiprazole 10 MG TABLET PO SCH (20:17)
[2022-05-25] MEDS: TraZODone HCL 50 MG TABLET PO SCH (20:18)
[2022-05-26] MEDS: LEVOTHYROXINE SODIUM 50 MCG TABLET PO SCH (06:14)
[2022-05-26 08:57] VITALS: BP 116/72
[2022-05-26] MEDS: HydrOXYzine PAMOATE 50 MG CAPSULE PO SCH ×3 (09:31→16:56)
[2022-05-26 20:21] VITALS: BP 100/62
[2022-05-26] MEDS: TraZODone HCL 50 MG TABLET PO SCH (20:31)
[2022-05-26] MEDS: ARIPiprazole 10 MG TABLET PO SCH (20:31)
[2022-05-27] MEDS: LEVOTHYROXINE SODIUM 50 MCG TABLET PO SCH (06:08)
[2022-05-27] MEDS: HydrOXYzine PAMOATE 50 MG CAPSULE PO SCH ×2 (08:10→12:35)
[2022-05-27 09:07] VITALS: BP 125/64
[2022-05-27] MEDS ORDERED: TRAZ-252 PO (09:50)
[2022-05-27] MEDS ORDERED: ARIP10TA38 PO (09:50)
[2022-05-27] MEDS ORDERED: HYDR50CA6 PO (09:50)
[2022-05-27] MEDS ORDERED: LEVO50 PO (09:50)
== END 2022-05-27 13:00 | disposition home or self-care (01) | DRG 885 ==
LOC: EMS 19:08 → B2X 05-19 01:10
PROVIDERS: ADMIT Psychiatry & Neurology Psychiatry; ATTEND Psychiatry & Neurology Psychiatry
DX: F25.1 Schizoaffective disorder, depressive type (principal); F31.4 Bipolar disorder, current episode depressed, severe, without psychotic features; E78.5 Hyperlipidemia, unspecified; E03.9 Hypothyroidism, unspecified; F43.12 Post-traumatic stress disorder, chronic; G47.00 Insomnia, unspecified; J45.909 Unspecified asthma, uncomplicated; Z20.822 Contact with and (suspected) exposure to COVID-19; Z59.00 Homelessness unspecified; Z79.899 Other long term (current) drug therapy; Z87.891 Personal history of nicotine dependence; Z88.0 Allergy status to penicillin; Z88.8 Allergy status to other drugs, medicaments and biological substances
CPT/HCPCS: 80053; 80061; 84703; 85025; 87081; 99285; G0480

== ENCOUNTER 2022-05-29 20:54 | Emergency (ER) | payer MEDICARE, MEDICAID ==
[~2022-05-29] VITALS: Ht 165.1 cm; Wt 72.7 kg
[~2022-05-29 20:54] MED LIST changes: -HYDR-4808 PO
[2022-05-29 22:23] VITALS: BP 124/77
== END 2022-05-29 23:17 | disposition left against medical advice (07) ==
LOC: EMS 20:55
DX: Z53.21 Procedure and treatment not carried out due to patient leaving prior to being seen by health care provider (principal)

== ENCOUNTER 2022-06-01 20:25 | Emergency (ER) | payer MEDICARE, MEDICAID ==
[~2022-06-01] VITALS: Ht 167.6 cm; Wt 72.0 kg
[2022-06-01 20:30] VITALS: BP 101/63
[2022-06-01] MEDS ORDERED: HydrOXYzine HCL 25 MG TABLET PO ONE (21:30)
== END 2022-06-02 04:19 | disposition home or self-care (01) ==
LOC: EMS 20:27
DX: F41.9 Anxiety disorder, unspecified (principal); F31.9 Bipolar disorder, unspecified; E03.9 Hypothyroidism, unspecified; F20.9 Schizophrenia, unspecified; F17.210 Nicotine dependence, cigarettes, uncomplicated; Z86.59 Personal history of other mental and behavioral disorders; Z98.890 Other specified postprocedural states; Z88.0 Allergy status to penicillin; Z88.8 Allergy status to other drugs, medicaments and biological substances
CPT/HCPCS: 99283

== ENCOUNTER 2022-06-03 00:10 | Emergency (ER) | payer MEDICARE, MEDICAID ==
[~2022-06-03] VITALS: Ht 165.1 cm; Wt 72.7 kg
[2022-06-03 00:12] VITALS: BP 103/67
[2022-06-03] MEDS ORDERED: HydrOXYzine PAMOATE 25 MG CAPSULE PO ONE (00:30)
== END 2022-06-03 00:41 | disposition still patient (30) ==
LOC: EMS 00:11
DX: F41.9 Anxiety disorder, unspecified (principal); Z76.0 Encounter for issue of repeat prescription; E03.9 Hypothyroidism, unspecified; F20.9 Schizophrenia, unspecified; F32.9 Major depressive disorder, single episode, unspecified; F43.10 Post-traumatic stress disorder, unspecified
CPT/HCPCS: 99283

== ENCOUNTER 2022-06-03 20:14 | Inpatient (IN) | payer MEDICARE, MEDICAID ==
[~2022-06-03] VITALS: Ht 165.1 cm; Wt 75.7 kg
[2022-06-03 22:01] LABS: BASOPHILS % (AUTO) 0.4 % (0.0-2.0); EOSINOPHILS % (AUTO) 0.6 % (1.0-6.0); HEMATOCRIT 38.1 % (36-46); HEMOGLOBIN 12.9 g/dL (12.0-16.0); LYMPHOCYTES # (AUTO) 2.5 K/uL (1.0-4.8); LYMPHOCYTES % (AUTO) 26.5 % (22.0-44.0); MEAN CORPUSCULAR HEMOGLOBIN 31.6 pg (26.0-34.0); MEAN CORPUSCULAR HGB CONC 33.8 G/dL (31.0-37.0); MEAN CORPUSCULAR VOLUME 94 fL (80-100); MONOCYTES # (AUTO) 0.5 K/uL (0.1-1.0); MONOCYTES % (AUTO) 5.2 % (2.0-9.0); NEUTROPHILS # (AUTO) 6.3 K/uL (1.8-7.7); NEUTROPHILS % (AUTO) 67.3 % (40.0-70.0); PLATELET COUNT (AUTO) 248 K/uL (150-450); RED BLOOD CELL COUNT(AUTO) 4.07 MIL/uL (4.00-5.20); RED CELL DISTRIBUTION WIDTH 14.3 % (11.5-14.5)
[2022-06-03 22:11] LABS: ANION GAP 6 mmol/L (8-16); CALCIUM, TOTAL 8.9 mg/dL (8.8-10.5); CARBON DIOXIDE 30 mmol/L (22-29); CHLORIDE 103 mmol/L (98-107); CREATININE 0.93 mg/dL (0.60-1.30); GLUCOSE,RANDOM 88 mg/dL (70-110); POTASSIUM 3.4 mmol/L (3.5-5.1); SODIUM SERUM 139 mmol/L (136-145); UREA NITROGEN, BLOOD 9 mg/dL (7-18)
[2022-06-03 22:14] LABS: GLOMERULAR FILTR. RATE CALC > 60 mL/min (>60)
[2022-06-03 22:21] LABS: LACTIC ACID 1.2 mmol/L (0.4-2.0)
[2022-06-03 22:27] LABS: ALANINE AMINOTRANSFERASE 22 U/L (12-78); ALBUMIN 3.6 g/dL (3.4-5.0); ALKALINE PHOSPHATASE 80 U/L (46-116); ASPARTATE AMINOTRANSFERASE 19 U/L (15-37); BILIRUBIN,TOTAL 0.5 mg/dL (0.1-1.0); CREATINE KINASE, TOTAL ONLY 158 U/L (26-192); LIPASE 128 U/L (73-393); TOTAL PROTEIN, SERUM 7.2 g/dL (6.4-8.2)
[2022-06-03 23:37] LABS: COVID AG,FIA SOURCE NASOPHARYNGEAL
[2022-06-04] MEDS ORDERED: ZOLPIDEM TARTRATE 10 MG TABLET PO PRN (01:45)
[2022-06-04 04:24] VITALS: BP 104/71
[2022-06-04] MEDS ORDERED: PNEUMOCOCCAL VACCINE POLYVALENT 0.5 ML VIAL [PPSV23] IM. ONE (04:30)
[2022-06-04] MEDS ORDERED: CloNIDine HCL 0.1 MG TABLET PO PRN (06:30)
[2022-06-04] MEDS ORDERED: NICOTINE 14 MG/24 HOUR PATCH TD PRN (06:30)
[2022-06-04] MEDS ORDERED: MAG HYDROX/AL HYDROX/SIMETH ES 30 ML SUSPENSION UDCUP PO PRN (06:30)
[2022-06-04] MEDS ORDERED: ALBUTEROL SULFATE HFA 90 MCG/PUFF 8 GM INHALER IH PRN (06:30)
[2022-06-04] MEDS ORDERED: LOPERAMIDE HCL 2 MG CAPSULE PO PRN (06:30)
[2022-06-04] MEDS ORDERED: GuaiFENesin/D-METHORPHAN [SUGAR-FREE] 200-20MG/10 ML SYRUP UDCUP PO PRN (06:30)
[2022-06-04] MEDS ORDERED: ACETAMINOPHEN 325 MG TABLET PO PRN (06:30)
[2022-06-04] MEDS ORDERED: IBUPROFEN 400 MG TABLET PO PRN (06:30)
[2022-06-04] MEDS ORDERED: DOCUSATE SODIUM 100 MG CAPSULE PO PRN (06:30)
[2022-06-04] MEDS ORDERED: MAGNESIUM HYDROXIDE SUSPENSION 30 ML UDCUP PO PRN (06:30)
[2022-06-04] MEDS ORDERED: PETROLATUM,WHITE 28 GM JELLY TP PRN ×2 (06:30→20:00)
[2022-06-04] MEDS ORDERED: ONDANSETRON HCL 4 MG TABLET PO PRN (06:30)
[2022-06-04] MEDS: LORazepam 2 MG TABLET PO PRN ×2 (06:46→12:15)
[2022-06-04] MEDS: HALOPERIDOL 5 MG TABLET PO PRN (08:44)
[2022-06-04 08:45] VITALS: BP 114/66
[2022-06-04] MEDS: HydrOXYzine PAMOATE 25 MG CAPSULE PO SCH (16:59)
[2022-06-04 20:15] VITALS: BP 115/70
[2022-06-04] MEDS: ARIPiprazole 10 MG TABLET PO SCH (20:38)
[2022-06-04] MEDS: TraZODone HCL 50 MG TABLET PO SCH (20:38)
[2022-06-05 09:08] VITALS: BP 100/57
[2022-06-05] MEDS: HydrOXYzine PAMOATE 25 MG CAPSULE PO SCH ×3 (09:49→16:31)
[2022-06-05] MEDS: TraZODone HCL 50 MG TABLET PO SCH (20:30)
[2022-06-05] MEDS: ARIPiprazole 10 MG TABLET PO SCH (20:30)
[2022-06-06 08:25] VITALS: BP 118/70
[2022-06-06] MEDS: HydrOXYzine PAMOATE 25 MG CAPSULE PO SCH ×3 (09:07→16:49)
[2022-06-06] MEDS: TraZODone HCL 50 MG TABLET PO SCH (20:09)
[2022-06-06] MEDS: ARIPiprazole 10 MG TABLET PO SCH (20:09)
[2022-06-07] MEDS: HydrOXYzine PAMOATE 25 MG CAPSULE PO SCH ×3 (08:39→17:00)
[2022-06-07 20:14] VITALS: BP 120/66
[2022-06-07] MEDS: ARIPiprazole 10 MG TABLET PO SCH (20:15)
[2022-06-07] MEDS: TraZODone HCL 50 MG TABLET PO SCH (20:15)
[2022-06-08 08:14] VITALS: BP 124/72
[2022-06-08] MEDS: HydrOXYzine PAMOATE 25 MG CAPSULE PO SCH ×3 (08:38→16:38)
[2022-06-08] MEDS: TraZODone HCL 50 MG TABLET PO SCH (21:00)
[2022-06-08] MEDS: ARIPiprazole 10 MG TABLET PO SCH (21:00)
[2022-06-08 21:16] VITALS: BP 108/62
[2022-06-09 09:16] LABS: GLUCOMETER DEV NAME(LOC) POC.BV
[2022-06-09] MEDS: HydrOXYzine PAMOATE 25 MG CAPSULE PO SCH ×3 (09:25→16:35)
[2022-06-09 16:26] VITALS: BP 119/74
[2022-06-09] MEDS: HALOPERIDOL 5 MG TABLET PO PRN (19:04)
[2022-06-09] MEDS: TraZODone HCL 50 MG TABLET PO SCH (20:30)
[2022-06-09] MEDS: ARIPiprazole 10 MG TABLET PO SCH (20:30)
[2022-06-09 21:16] VITALS: BP 120/70
[2022-06-10] MEDS: HydrOXYzine PAMOATE 25 MG CAPSULE PO SCH ×3 (08:23→16:30)
[2022-06-10 08:58] VITALS: BP 115/77
[2022-06-10] MEDS: TraZODone HCL 50 MG TABLET PO SCH (21:46)
[2022-06-10] MEDS: ARIPiprazole 10 MG TABLET PO SCH (21:46)
[2022-06-10 23:32] VITALS: BP 120/78
[2022-06-11] MEDS: HydrOXYzine PAMOATE 25 MG CAPSULE PO SCH ×3 (08:35→16:19)
[2022-06-11 09:00] VITALS: BP 100/71
[2022-06-11 20:12] VITALS: BP 112/72
[2022-06-11] MEDS: LORazepam 2 MG TABLET PO PRN (20:29)
[2022-06-11] MEDS: ARIPiprazole 10 MG TABLET PO SCH (21:11)
[2022-06-11] MEDS: TraZODone HCL 50 MG TABLET PO SCH (21:11)
[2022-06-12] MEDS: HALOPERIDOL 5 MG TABLET PO PRN (08:52)
[2022-06-12] MEDS: HydrOXYzine PAMOATE 25 MG CAPSULE PO SCH ×3 (08:52→17:06)
[2022-06-12] MEDS: LORazepam 2 MG TABLET PO PRN (12:08)
[2022-06-12] MEDS: TraZODone HCL 50 MG TABLET PO SCH (20:03)
[2022-06-12] MEDS: ARIPiprazole 10 MG TABLET PO SCH (20:03)
[2022-06-13] MEDS: HydrOXYzine PAMOATE 25 MG CAPSULE PO SCH ×3 (08:08→16:57)
[2022-06-13] MEDS ORDERED: ARIPiprazole LAUROXIL ER SUSPENSION 882 MG/3.2 ML SYRINGE IM ONE (11:30)
[2022-06-13] MEDS ORDERED: ARIPiprazole LAUROXIL,SUBMICR. ER SUSPENSION 675 MG/2.4 ML SYRINGE IM ONE (11:30)
[2022-06-13 20:05] VITALS: BP 114/76
[2022-06-13] MEDS: TraZODone HCL 50 MG TABLET PO SCH (20:38)
[2022-06-13] MEDS: ARIPiprazole 10 MG TABLET PO SCH (20:38)
[2022-06-14] MEDS: HydrOXYzine PAMOATE 25 MG CAPSULE PO SCH ×3 (08:28→16:34)
[2022-06-14 20:23] VITALS: BP 123/79
[2022-06-14] MEDS: TraZODone HCL 50 MG TABLET PO SCH (20:32)
[2022-06-15] MEDS: HydrOXYzine PAMOATE 25 MG CAPSULE PO SCH ×3 (08:45→17:05)
[2022-06-15] MEDS: LORazepam 2 MG TABLET PO PRN (13:42)
[2022-06-15] MEDS: TraZODone HCL 50 MG TABLET PO SCH (20:17)
[2022-06-16] MEDS: HydrOXYzine PAMOATE 25 MG CAPSULE PO SCH ×3 (08:11→16:11)
[2022-06-16 10:01] VITALS: BP 114/74
[2022-06-16] MEDS: LORazepam 2 MG TABLET PO PRN (14:47)
[2022-06-16] MEDS: TraZODone HCL 50 MG TABLET PO SCH (20:03)
[2022-06-17 06:36] VITALS: BP 123/68
[2022-06-17 08:24] VITALS: BP 102/69
[2022-06-17] MEDS: HydrOXYzine PAMOATE 25 MG CAPSULE PO SCH ×3 (08:39→16:45)
[2022-06-17] MEDS: HALOPERIDOL 5 MG TABLET PO PRN (08:41)
[2022-06-17 09:26] LABS: GLUCOMETER DEV NAME(LOC) POC.BV
[2022-06-17] MEDS: TraZODone HCL 50 MG TABLET PO SCH (21:00)
[2022-06-18 08:00] VITALS: BP 128/72
[2022-06-18] MEDS: HydrOXYzine PAMOATE 25 MG CAPSULE PO SCH ×3 (09:25→16:32)
[2022-06-18 20:18] VITALS: BP 117/75
[2022-06-18] MEDS: TraZODone HCL 50 MG TABLET PO SCH (20:35)
[2022-06-19 09:15] VITALS: BP 100/62
[2022-06-19] MEDS: HydrOXYzine PAMOATE 25 MG CAPSULE PO SCH ×3 (09:38→16:29)
[2022-06-19 20:14] VITALS: BP 116/78
[2022-06-19] MEDS: TraZODone HCL 50 MG TABLET PO SCH (20:30)
[2022-06-20 04:30] VITALS: BP 126/72
[2022-06-20] MEDS: HydrOXYzine PAMOATE 25 MG CAPSULE PO SCH ×3 (08:02→17:10)
[2022-06-20] MEDS: HALOPERIDOL 5 MG TABLET PO PRN (08:02)
[2022-06-20 08:15] VITALS: BP 111/61
[2022-06-20 20:09] VITALS: BP 104/60
[2022-06-20] MEDS: TraZODone HCL 50 MG TABLET PO SCH (20:15)
[2022-06-21] MEDS: HydrOXYzine PAMOATE 25 MG CAPSULE PO SCH (08:20)
[2022-06-21 08:35] VITALS: BP 108/65
[2022-06-21] MEDS ORDERED: ARIP882S2 IM (10:38)
[2022-06-21] MEDS ORDERED: HYDR-4808 PO (10:38)
[2022-06-21] MEDS ORDERED: TRAZ-252 PO (10:38)
[2022-07-13] MEDS ORDERED: ARIPiprazole LAUROXIL ER SUSPENSION 882 MG/3.2 ML SYRINGE IM SCH (09:00)
== END 2022-06-21 10:10 | disposition home or self-care (01) | DRG 885 ==
LOC: EMS 20:24 → B2X 06-04 01:58
PROVIDERS: ADMIT Psychiatry & Neurology Psychiatry; ATTEND Psychiatry & Neurology Psychiatry
DX: F25.1 Schizoaffective disorder, depressive type (principal); R45.851 Suicidal ideations; E03.9 Hypothyroidism, unspecified; E78.5 Hyperlipidemia, unspecified; E87.6 Hypokalemia; F43.12 Post-traumatic stress disorder, chronic; G47.00 Insomnia, unspecified; F17.210 Nicotine dependence, cigarettes, uncomplicated; J45.909 Unspecified asthma, uncomplicated; Z79.899 Other long term (current) drug therapy; Z88.0 Allergy status to penicillin; Z88.8 Allergy status to other drugs, medicaments and biological substances; Z91.14 Patient's other noncompliance with medication regimen
CPT/HCPCS: 80053; 82550; 83605; 83690; 84132; 84484; 85025; 87081; 99285; G0480; Q9967

== ENCOUNTER 2022-07-31 18:00 | Inpatient (IN) | payer MEDICARE, MEDICAID ==
[~2022-07-31] VITALS: Ht 165.1 cm; Wt 77.6 kg
[~2022-07-31 18:00] MED LIST changes: -ARIP10TA38 PO; +ARIP882S2 IM; +HYDR-4808 PO; -LEVO50 PO
[2022-07-31 19:49] LABS: AMPHET/METH SCREEN,URINE NEGATIVE (NEGATIVE); BARBITURATE SCREEN, URINE NEGATIVE (NEGATIVE); BENZODIAZEPINES SCREEN,URINE NEGATIVE (NEGATIVE); CANNABINOID SCREEN,URINE NEGATIVE (NEGATIVE); COCAINE SCREEN,URINE NEGATIVE (NEGATIVE); METHADONE SCREEN, URINE NEGATIVE (NEGATIVE); OPIATE SCREEN,URINE NEGATIVE (NEGATIVE)
[2022-07-31 19:51] LABS: PHENCYCLIDINE SCREEN,URINE NEGATIVE (NEGATIVE)
[2022-07-31 20:43] LABS: BASOPHILS % (AUTO) 0.8 % (0.0-2.0); EOSINOPHILS % (AUTO) 0.9 % (1.0-6.0); HEMATOCRIT 38.7 % (36-46); LYMPHOCYTES # (AUTO) 2.3 K/uL (1.0-4.8); LYMPHOCYTES % (AUTO) 36.8 % (22.0-44.0); MEAN CORPUSCULAR HEMOGLOBIN 31.5 pg (26.0-34.0); MEAN CORPUSCULAR HGB CONC 33.7 G/dL (31.0-37.0); MEAN CORPUSCULAR VOLUME 94 fL (80-100); MONOCYTES # (AUTO) 0.4 K/uL (0.1-1.0); MONOCYTES % (AUTO) 6.8 % (2.0-9.0); NEUTROPHILS # (AUTO) 3.4 K/uL (1.8-7.7); NEUTROPHILS % (AUTO) 54.7 % (40.0-70.0); PLATELET COUNT (AUTO) 222 K/uL (150-450); RED BLOOD CELL COUNT(AUTO) 4.14 MIL/uL (4.00-5.20)
[2022-07-31 21:02] LABS: ANION GAP 4 mmol/L (8-16); CALCIUM, TOTAL 9.2 mg/dL (8.8-10.5); CARBON DIOXIDE 27 mmol/L (22-29); CHLORIDE 104 mmol/L (98-107); CREATININE 0.84 mg/dL (0.60-1.30); GLUCOSE,RANDOM 136 mg/dL (70-110); POTASSIUM 3.5 mmol/L (3.5-5.1); SODIUM SERUM 135 mmol/L (136-145); UREA NITROGEN, BLOOD 13 mg/dL (7-18)
[2022-07-31 21:03] LABS: GLOMERULAR FILTR. RATE CALC > 60 mL/min (>60)
[2022-07-31 21:08] LABS: ALANINE AMINOTRANSFERASE 20 U/L (12-78); ALBUMIN 3.2 g/dL (3.4-5.0); ALKALINE PHOSPHATASE 86 U/L (46-116); ASPARTATE AMINOTRANSFERASE 20 U/L (15-37); BILIRUBIN,TOTAL 0.3 mg/dL (0.1-1.0); TOTAL PROTEIN, SERUM 6.8 g/dL (6.4-8.2)
[2022-07-31] MEDS ORDERED: ZOLPIDEM TARTRATE 10 MG TABLET PO PRN (21:30)
[2022-07-31 22:08] LABS: COVID AG,FIA SOURCE NASAL SWAB
[2022-08-01 03:55] VITALS: BP 111/66
[2022-08-01] MEDS: LORazepam 2 MG TABLET PO PRN (04:18)
[2022-08-01] MEDS ORDERED: INFLUENZA VIRUS VACCINE QVS 2022-23 (6MO+)/PF 60 MCG/0.5 ML SYRINGE IM. ONE (05:45)
[2022-08-01] MEDS ORDERED: OLAN10 PO (09:16)
[2022-08-01] MEDS ORDERED: IBUPROFEN 400 MG TABLET PO PRN (11:00)
[2022-08-01] MEDS ORDERED: ONDANSETRON HCL 4 MG TABLET PO PRN (11:00)
[2022-08-01] MEDS ORDERED: ACETAMINOPHEN 325 MG TABLET PO PRN (11:00)
[2022-08-01] MEDS ORDERED: ALBUTEROL SULFATE HFA 90 MCG/PUFF 8 GM INHALER IH PRN (11:00)
[2022-08-01] MEDS ORDERED: LOPERAMIDE HCL 2 MG CAPSULE PO PRN (11:00)
[2022-08-01] MEDS ORDERED: MAGNESIUM HYDROXIDE SUSPENSION 30 ML UDCUP PO PRN (11:00)
[2022-08-01] MEDS ORDERED: PETROLATUM,WHITE 28 GM JELLY TP PRN (11:00)
[2022-08-01] MEDS ORDERED: GuaiFENesin/D-METHORPHAN [SUGAR-FREE] 200-20MG/10 ML SYRUP UDCUP PO PRN (11:00)
[2022-08-01] MEDS ORDERED: CloNIDine HCL 0.1 MG TABLET PO PRN (11:00)
[2022-08-01] MEDS ORDERED: DOCUSATE SODIUM 100 MG CAPSULE PO PRN (11:00)
[2022-08-01] MEDS ORDERED: NICOTINE 14 MG/24 HOUR PATCH TD PRN (11:00)
[2022-08-01] MEDS ORDERED: MAG HYDROX/AL HYDROX/SIMETH ES 30 ML SUSPENSION UDCUP PO PRN (11:00)
[2022-08-01] MEDS: HydrOXYzine PAMOATE 50 MG CAPSULE PO SCH ×2 (12:23→16:55)
[2022-08-01 13:59] VITALS: BP 118/68
[2022-08-01] MEDS: OLANZapine 10 MG TABLET PO SCH (20:23)
[2022-08-01] MEDS: TraZODone HCL 50 MG TABLET PO SCH (20:23)
[2022-08-02] MEDS: HydrOXYzine PAMOATE 50 MG CAPSULE PO SCH ×3 (08:20→16:04)
[2022-08-02 20:46] VITALS: BP 106/65
[2022-08-02] MEDS: TraZODone HCL 50 MG TABLET PO SCH (20:52)
[2022-08-02] MEDS: OLANZapine 10 MG TABLET PO SCH (20:52)
[2022-08-03] MEDS: HydrOXYzine PAMOATE 50 MG CAPSULE PO SCH ×3 (08:57→16:22)
[2022-08-03] MEDS: OLANZapine 10 MG TABLET PO SCH (20:22)
[2022-08-03] MEDS: TraZODone HCL 50 MG TABLET PO SCH (20:22)
[2022-08-04 08:44] VITALS: BP 108/66
[2022-08-04] MEDS: HydrOXYzine PAMOATE 50 MG CAPSULE PO SCH ×3 (09:46→16:34)
[2022-08-04 20:00] VITALS: BP 110/68
[2022-08-04] MEDS: TraZODone HCL 50 MG TABLET PO SCH (20:28)
[2022-08-04] MEDS: OLANZapine 10 MG TABLET PO SCH (20:29)
[2022-08-05] MEDS: HydrOXYzine PAMOATE 50 MG CAPSULE PO SCH ×3 (08:12→17:03)
[2022-08-05 08:18] VITALS: BP 114/70
[2022-08-05] MEDS: OLANZapine 10 MG TABLET PO SCH (20:14)
[2022-08-05] MEDS: TraZODone HCL 50 MG TABLET PO SCH (20:14)
[2022-08-05 21:51] VITALS: BP 109/74
[2022-08-06 04:05] VITALS: BP 115/70
[2022-08-06 08:30] VITALS: BP 110/69
[2022-08-06] MEDS: HydrOXYzine PAMOATE 50 MG CAPSULE PO SCH ×3 (08:36→17:04)
[2022-08-06] MEDS: TraZODone HCL 50 MG TABLET PO SCH (20:29)
[2022-08-06] MEDS: OLANZapine 10 MG TABLET PO SCH (20:30)
[2022-08-06 21:53] VITALS: BP 108/62
[2022-08-07 05:46] LABS: GLUCOMETER DEV NAME(LOC) POC.BV
[2022-08-07 08:21] VITALS: BP 105/74
[2022-08-07] MEDS: HydrOXYzine PAMOATE 50 MG CAPSULE PO SCH ×3 (08:40→16:58)
[2022-08-07] MEDS: TraZODone HCL 50 MG TABLET PO SCH (20:29)
[2022-08-07] MEDS: OLANZapine 10 MG TABLET PO SCH (20:29)
[2022-08-07 20:54] VITALS: BP 100/62
[2022-08-08 08:24] VITALS: BP 108/74
[2022-08-08] MEDS: HydrOXYzine PAMOATE 50 MG CAPSULE PO SCH ×3 (08:47→17:05)
[2022-08-08] MEDS: OLANZapine 10 MG TABLET PO SCH (20:02)
[2022-08-08] MEDS: TraZODone HCL 50 MG TABLET PO SCH (20:02)
[2022-08-08 20:05] VITALS: BP 100/61
[2022-08-09] MEDS: HydrOXYzine PAMOATE 50 MG CAPSULE PO SCH ×3 (08:22→16:19)
[2022-08-09 08:36] VITALS: BP 118/56
[2022-08-09] MEDS: TraZODone HCL 50 MG TABLET PO SCH (20:42)
[2022-08-09] MEDS: OLANZapine 10 MG TABLET PO SCH (20:42)
[2022-08-10 06:10] VITALS: BP 110/63
[2022-08-10] MEDS: HydrOXYzine PAMOATE 50 MG CAPSULE PO SCH ×3 (08:34→16:56)
[2022-08-10] MEDS: TraZODone HCL 50 MG TABLET PO SCH (20:29)
[2022-08-10] MEDS: OLANZapine 10 MG TABLET PO SCH (20:30)
[2022-08-11 02:13] VITALS: BP 106/67
[2022-08-11 09:00] VITALS: BP 110/69
[2022-08-11] MEDS: HydrOXYzine PAMOATE 50 MG CAPSULE PO SCH ×3 (09:44→17:05)
[2022-08-11 20:45] VITALS: BP 102/61
[2022-08-11] MEDS: OLANZapine 10 MG TABLET PO SCH (21:08)
[2022-08-11] MEDS: TraZODone HCL 50 MG TABLET PO SCH (21:09)
[2022-08-12] MEDS: HydrOXYzine PAMOATE 50 MG CAPSULE PO SCH ×3 (08:51→16:21)
[2022-08-12 09:41] VITALS: BP 99/72
[2022-08-12] MEDS: OLANZapine 10 MG TABLET PO SCH (20:20)
[2022-08-12] MEDS: TraZODone HCL 50 MG TABLET PO SCH (20:20)
[2022-08-12 20:39] VITALS: BP 122/69
[2022-08-13 08:05] VITALS: BP 127/90
[2022-08-13 08:21] LABS: GLUCOMETER DEV NAME(LOC) POC.BV
[2022-08-13] MEDS: HydrOXYzine PAMOATE 50 MG CAPSULE PO SCH ×3 (09:14→16:31)
[2022-08-13 20:22] VITALS: BP 112/66
[2022-08-13] MEDS: TraZODone HCL 50 MG TABLET PO SCH (20:27)
[2022-08-13] MEDS: OLANZapine 10 MG TABLET PO SCH (20:28)
[2022-08-14] MEDS: HydrOXYzine PAMOATE 50 MG CAPSULE PO SCH ×3 (08:04→16:24)
[2022-08-14 08:06] VITALS: BP 97/72
[2022-08-14 20:00] VITALS: BP 103/72
[2022-08-14] MEDS: TraZODone HCL 50 MG TABLET PO SCH (20:05)
[2022-08-14] MEDS: OLANZapine 10 MG TABLET PO SCH (20:05)
[2022-08-15 08:09] VITALS: BP 129/73
[2022-08-15] MEDS: HydrOXYzine PAMOATE 50 MG CAPSULE PO SCH ×3 (08:14→16:57)
[2022-08-15] MEDS: OLANZapine 10 MG TABLET PO SCH (20:00)
[2022-08-15] MEDS: TraZODone HCL 50 MG TABLET PO SCH (20:01)
[2022-08-15 20:22] VITALS: BP 106/59
[2022-08-16 08:21] VITALS: BP 102/61
[2022-08-16] MEDS: HydrOXYzine PAMOATE 50 MG CAPSULE PO SCH ×3 (09:39→17:01)
[2022-08-16 20:06] VITALS: BP 117/66
[2022-08-16] MEDS: OLANZapine 10 MG TABLET PO SCH (20:58)
[2022-08-16] MEDS: TraZODone HCL 50 MG TABLET PO SCH (20:58)
[2022-08-17 08:44] VITALS: BP 121/69
[2022-08-17 08:50] LABS: FREE T4 (FREE THYROXINE) 0.81 ng/dL (0.76-1.46); THYROID STIMULATING HORMONE 3.9 uIU/mL (0.36-3.74)
[2022-08-17] MEDS: HydrOXYzine PAMOATE 50 MG CAPSULE PO SCH ×3 (10:03→16:51)
[2022-08-17] MEDS: OLANZapine 10 MG TABLET PO SCH (20:07)
[2022-08-17] MEDS: TraZODone HCL 50 MG TABLET PO SCH (20:07)
[2022-08-17 20:10] VITALS: BP 120/77
[2022-08-18 08:14] VITALS: BP 110/60
[2022-08-18] MEDS: HydrOXYzine PAMOATE 50 MG CAPSULE PO SCH ×3 (08:55→16:40)
[2022-08-18] MEDS: OLANZapine 10 MG TABLET PO SCH (20:13)
[2022-08-18] MEDS: TraZODone HCL 50 MG TABLET PO SCH (20:13)
[2022-08-19 00:26] VITALS: BP 142/70
[2022-08-19] MEDS: HydrOXYzine PAMOATE 50 MG CAPSULE PO SCH ×3 (08:03→16:30)
[2022-08-19 08:55] VITALS: BP 127/63
[2022-08-19 20:26] VITALS: BP 115/84
[2022-08-19] MEDS: OLANZapine 10 MG TABLET PO SCH (20:32)
[2022-08-19] MEDS: TraZODone HCL 50 MG TABLET PO SCH (20:32)
[2022-08-20] MEDS: HydrOXYzine PAMOATE 50 MG CAPSULE PO SCH ×3 (08:46→16:28)
[2022-08-20 09:43] VITALS: BP 110/71
[2022-08-20 17:56] LABS: GLUCOMETER DEV NAME(LOC) POC.BV
[2022-08-20] MEDS: TraZODone HCL 50 MG TABLET PO SCH (20:31)
[2022-08-20] MEDS: OLANZapine 10 MG TABLET PO SCH (20:32)
[2022-08-20 22:09] VITALS: BP 110/71
[2022-08-21 08:08] VITALS: BP 104/67
[2022-08-21] MEDS: HydrOXYzine PAMOATE 50 MG CAPSULE PO SCH ×3 (08:28→16:06)
[2022-08-21] MEDS: TraZODone HCL 50 MG TABLET PO SCH (20:14)
[2022-08-21] MEDS: OLANZapine 10 MG TABLET PO SCH (20:14)
[2022-08-21 20:15] VITALS: BP 107/61
[2022-08-22] MEDS: HydrOXYzine PAMOATE 50 MG CAPSULE PO SCH ×3 (08:48→17:17)
[2022-08-22] MEDS: OLANZapine 10 MG TABLET PO SCH (20:30)
[2022-08-22] MEDS: TraZODone HCL 50 MG TABLET PO SCH (20:30)
[2022-08-22 20:44] VITALS: BP 117/66
[2022-08-23 08:34] VITALS: BP 120/64
[2022-08-23] MEDS: HydrOXYzine PAMOATE 50 MG CAPSULE PO SCH ×3 (09:30→16:29)
[2022-08-23 20:18] VITALS: BP 107/70
[2022-08-23] MEDS: OLANZapine 10 MG TABLET PO SCH (20:30)
[2022-08-23] MEDS: TraZODone HCL 50 MG TABLET PO SCH (20:30)
[2022-08-24 08:02] VITALS: BP 107/64
[2022-08-24] MEDS: HydrOXYzine PAMOATE 50 MG CAPSULE PO SCH ×3 (08:07→16:46)
[2022-08-24 20:02] VITALS: BP 121/85
[2022-08-24] MEDS: OLANZapine 10 MG TABLET PO SCH (20:07)
[2022-08-24] MEDS: TraZODone HCL 50 MG TABLET PO SCH (20:07)
[2022-08-25] MEDS: HydrOXYzine PAMOATE 50 MG CAPSULE PO SCH ×3 (08:05→16:23)
[2022-08-25 08:43] VITALS: BP 106/62
[2022-08-25] MEDS: TraZODone HCL 50 MG TABLET PO SCH (20:41)
[2022-08-25] MEDS: OLANZapine 10 MG TABLET PO SCH (20:42)
[2022-08-25 21:08] VITALS: BP 110/70
[2022-08-26 08:22] VITALS: BP 101/64
[2022-08-26] MEDS: HydrOXYzine PAMOATE 50 MG CAPSULE PO SCH ×3 (10:16→17:26)
[2022-08-26 19:52] VITALS: BP 114/68
[2022-08-26 20:00] VITALS: BP 114/68
[2022-08-26] MEDS: OLANZapine 10 MG TABLET PO SCH (20:43)
[2022-08-26] MEDS: TraZODone HCL 50 MG TABLET PO SCH (20:43)
[2022-08-27] MEDS: HydrOXYzine PAMOATE 50 MG CAPSULE PO SCH ×3 (08:12→16:26)
[2022-08-27 08:29] VITALS: BP 106/67
[2022-08-27 15:51] LABS: GLUCOMETER DEV NAME(LOC) POC.BV
[2022-08-27] MEDS: TraZODone HCL 50 MG TABLET PO SCH (20:57)
[2022-08-27] MEDS: OLANZapine 10 MG TABLET PO SCH (20:58)
[2022-08-27 22:49] VITALS: BP 110/68
[2022-08-28 08:03] VITALS: BP 104/67
[2022-08-28] MEDS: HydrOXYzine PAMOATE 50 MG CAPSULE PO SCH ×3 (08:43→16:36)
[2022-08-28] MEDS: OLANZapine 10 MG TABLET PO SCH (20:01)
[2022-08-28] MEDS: TraZODone HCL 50 MG TABLET PO SCH (20:02)
[2022-08-28 20:35] VITALS: BP 90/57
[2022-08-29 09:00] VITALS: BP 101/66
[2022-08-29] MEDS: HydrOXYzine PAMOATE 50 MG CAPSULE PO SCH ×3 (09:53→16:51)
[2022-08-29] MEDS ORDERED: TUBERCULIN, PURIFIED PROTEIN DERIVATIVE 5 TU/0.1 ML SYRINGE ID ONE (11:45)
[2022-08-29 20:00] VITALS: BP 107/58
[2022-08-29] MEDS: OLANZapine 10 MG TABLET PO SCH (20:04)
[2022-08-29] MEDS: TraZODone HCL 50 MG TABLET PO SCH (20:05)
[2022-08-30 08:15] VITALS: BP 110/74
[2022-08-30] MEDS: HydrOXYzine PAMOATE 50 MG CAPSULE PO SCH ×3 (08:18→17:01)
[2022-08-30] MEDS: TraZODone HCL 50 MG TABLET PO SCH (20:03)
[2022-08-30] MEDS: OLANZapine 10 MG TABLET PO SCH (20:03)
[2022-08-30 20:23] VITALS: BP 107/71
[2022-08-31 08:14] VITALS: BP 103/66
[2022-08-31] MEDS: HydrOXYzine PAMOATE 50 MG CAPSULE PO SCH ×3 (08:37→16:44)
[2022-08-31] MEDS: OLANZapine 10 MG TABLET PO SCH (20:10)
[2022-08-31] MEDS: TraZODone HCL 50 MG TABLET PO SCH (20:10)
[2022-08-31 21:44] VITALS: BP 101/63
[2022-09-01] MEDS: HydrOXYzine PAMOATE 50 MG CAPSULE PO SCH ×3 (08:09→17:00)
[2022-09-01 08:36] VITALS: BP 97/65
[2022-09-01] MEDS: TraZODone HCL 50 MG TABLET PO SCH (20:47)
[2022-09-01] MEDS: OLANZapine 10 MG TABLET PO SCH (20:48)
[2022-09-01 21:40] VITALS: BP 106/72
[2022-09-02] MEDS: HydrOXYzine PAMOATE 50 MG CAPSULE PO SCH ×3 (08:07→16:02)
[2022-09-02 08:26] VITALS: BP 129/62
[2022-09-02] MEDS: OLANZapine 10 MG TABLET PO SCH (20:02)
[2022-09-02] MEDS: TraZODone HCL 50 MG TABLET PO SCH (20:02)
[2022-09-02 21:00] VITALS: BP 92/56
[2022-09-03 08:00] VITALS: BP 108/70
[2022-09-03 08:11] LABS: GLUCOMETER DEV NAME(LOC) POC.BV
[2022-09-03] MEDS: HydrOXYzine PAMOATE 50 MG CAPSULE PO SCH ×3 (08:50→16:52)
[2022-09-03 20:00] VITALS: BP 102/56
[2022-09-03] MEDS: TraZODone HCL 50 MG TABLET PO SCH (20:03)
[2022-09-03] MEDS: OLANZapine 10 MG TABLET PO SCH (20:03)
[2022-09-04 08:21] VITALS: BP 110/69
[2022-09-04] MEDS: HydrOXYzine PAMOATE 50 MG CAPSULE PO SCH ×3 (09:55→17:28)
[2022-09-04 13:57] LABS: GLUCOMETER DEV NAME(LOC) POC.BV
[2022-09-04 20:23] VITALS: BP 110/69
[2022-09-04] MEDS: OLANZapine 10 MG TABLET PO SCH (20:45)
[2022-09-04] MEDS: TraZODone HCL 50 MG TABLET PO SCH (20:46)
[2022-09-05] MEDS: HydrOXYzine PAMOATE 50 MG CAPSULE PO SCH ×3 (09:06→16:49)
[2022-09-05 17:21] LABS: GLUCOMETER DEV NAME(LOC) POC.BV
[2022-09-05] MEDS: OLANZapine 10 MG TABLET PO SCH (20:31)
[2022-09-05] MEDS: TraZODone HCL 50 MG TABLET PO SCH (20:31)
[2022-09-05 20:44] VITALS: BP 137/92
[2022-09-06] MEDS: HydrOXYzine PAMOATE 50 MG CAPSULE PO SCH ×3 (08:41→16:52)
[2022-09-06 08:48] VITALS: BP 109/63
[2022-09-06] MEDS: OLANZapine 10 MG TABLET PO SCH (20:10)
[2022-09-06] MEDS: TraZODone HCL 50 MG TABLET PO SCH (20:10)
[2022-09-06 20:53] VITALS: BP 105/72
[2022-09-07] MEDS: HydrOXYzine PAMOATE 50 MG CAPSULE PO SCH ×3 (09:09→16:21)
[2022-09-07 20:06] VITALS: BP 121/83
[2022-09-07] MEDS: TraZODone HCL 50 MG TABLET PO SCH (20:14)
[2022-09-07] MEDS: OLANZapine 10 MG TABLET PO SCH (20:14)
[2022-09-08 08:30] VITALS: BP 115/63
[2022-09-08] MEDS: HydrOXYzine PAMOATE 50 MG CAPSULE PO SCH ×3 (09:19→16:16)
[2022-09-08 20:03] VITALS: BP 121/78
[2022-09-08] MEDS: TraZODone HCL 50 MG TABLET PO SCH (20:04)
[2022-09-08] MEDS: OLANZapine 10 MG TABLET PO SCH (20:04)
[2022-09-09 08:11] VITALS: BP 107/65
[2022-09-09] MEDS: HydrOXYzine PAMOATE 50 MG CAPSULE PO SCH ×3 (08:50→16:33)
[2022-09-09] MEDS: TraZODone HCL 50 MG TABLET PO SCH (20:52)
[2022-09-09] MEDS: OLANZapine 10 MG TABLET PO SCH (20:52)
[2022-09-09 20:54] VITALS: BP 119/64
[2022-09-09 21:13] VITALS: BP 119/64
[2022-09-10] MEDS: HydrOXYzine PAMOATE 50 MG CAPSULE PO SCH ×3 (09:35→16:25)
[2022-09-10 10:54] VITALS: BP 116/68
[2022-09-10 20:19] VITALS: BP 109/77
[2022-09-10] MEDS: TraZODone HCL 50 MG TABLET PO SCH (20:29)
[2022-09-10] MEDS: OLANZapine 10 MG TABLET PO SCH (20:29)
[2022-09-11] MEDS: HydrOXYzine PAMOATE 50 MG CAPSULE PO SCH ×3 (08:19→16:32)
[2022-09-11] MEDS: TraZODone HCL 50 MG TABLET PO SCH (20:26)
[2022-09-11] MEDS: OLANZapine 10 MG TABLET PO SCH (20:26)
[2022-09-11 21:01] VITALS: BP 101/61
[2022-09-12] MEDS: HydrOXYzine PAMOATE 50 MG CAPSULE PO SCH ×3 (08:22→16:12)
[2022-09-12 08:42] VITALS: BP 106/70
[2022-09-12 13:16] LABS: GLUCOMETER DEV NAME(LOC) POC.BV
[2022-09-12] MEDS: OLANZapine 10 MG TABLET PO SCH (20:11)
[2022-09-12] MEDS: TraZODone HCL 50 MG TABLET PO SCH (20:11)
[2022-09-12 21:19] VITALS: BP 104/74
[2022-09-13 08:15] VITALS: BP 118/70
[2022-09-13] MEDS: HydrOXYzine PAMOATE 50 MG CAPSULE PO SCH ×3 (09:11→16:52)
[2022-09-13] MEDS: OLANZapine 10 MG TABLET PO SCH (20:28)
[2022-09-13] MEDS: TraZODone HCL 50 MG TABLET PO SCH (20:28)
[2022-09-13 20:47] VITALS: BP 106/77
[2022-09-14] MEDS: HydrOXYzine PAMOATE 50 MG CAPSULE PO SCH ×3 (09:27→16:43)
[2022-09-14 09:34] VITALS: BP 104/64
[2022-09-14] MEDS: OLANZapine 10 MG TABLET PO SCH (20:06)
[2022-09-14] MEDS: TraZODone HCL 50 MG TABLET PO SCH (20:06)
[2022-09-14 20:50] VITALS: BP 101/60
[2022-09-15 09:14] VITALS: BP 106/63
[2022-09-15] MEDS: HydrOXYzine PAMOATE 50 MG CAPSULE PO SCH ×3 (09:18→16:13)
[2022-09-15 20:05] VITALS: BP 97/64
[2022-09-15] MEDS: TraZODone HCL 50 MG TABLET PO SCH (21:25)
[2022-09-15] MEDS: OLANZapine 10 MG TABLET PO SCH (21:25)
[2022-09-16] MEDS: HydrOXYzine PAMOATE 50 MG CAPSULE PO SCH ×3 (08:29→17:06)
[2022-09-16 09:05] VITALS: BP 100/67
[2022-09-16] MEDS: OLANZapine 10 MG TABLET PO SCH (20:18)
[2022-09-16] MEDS: TraZODone HCL 50 MG TABLET PO SCH (20:18)
[2022-09-16 20:51] VITALS: BP 105/69
[2022-09-17] MEDS: HydrOXYzine PAMOATE 50 MG CAPSULE PO SCH ×3 (08:20→16:36)
[2022-09-17 08:52] VITALS: BP 100/69
[2022-09-17 20:03] VITALS: BP 125/90
[2022-09-17] MEDS: OLANZapine 10 MG TABLET PO SCH (20:27)
[2022-09-17] MEDS: TraZODone HCL 50 MG TABLET PO SCH (20:27)
[2022-09-18 08:26] VITALS: BP 100/61
[2022-09-18] MEDS: HydrOXYzine PAMOATE 50 MG CAPSULE PO SCH ×3 (08:56→16:39)
[2022-09-18] MEDS: TraZODone HCL 50 MG TABLET PO SCH (20:39)
[2022-09-18] MEDS: OLANZapine 10 MG TABLET PO SCH (20:39)
[2022-09-18 20:45] VITALS: BP 117/86
[2022-09-19 08:23] VITALS: BP 119/80
[2022-09-19] MEDS: HydrOXYzine PAMOATE 50 MG CAPSULE PO SCH ×3 (08:44→16:20)
[2022-09-19 09:56] LABS: GLUCOMETER DEV NAME(LOC) POC.BV
[2022-09-19] MEDS: OLANZapine 10 MG TABLET PO SCH (20:03)
[2022-09-19] MEDS: TraZODone HCL 50 MG TABLET PO SCH (20:03)
[2022-09-19 20:36] VITALS: BP 131/79
[2022-09-20 08:07] VITALS: BP 107/65
[2022-09-20] MEDS: HydrOXYzine PAMOATE 50 MG CAPSULE PO SCH ×3 (08:15→16:04)
[2022-09-20 20:03] VITALS: BP 132/88
[2022-09-20] MEDS: OLANZapine 10 MG TABLET PO SCH (20:37)
[2022-09-20] MEDS: TraZODone HCL 50 MG TABLET PO SCH (20:37)
[2022-09-21 08:22] VITALS: BP 108/70
[2022-09-21 08:24] VITALS: BP 101/74
[2022-09-21] MEDS: HydrOXYzine PAMOATE 50 MG CAPSULE PO SCH ×3 (08:28→16:14)
[2022-09-21] MEDS: OLANZapine 10 MG TABLET PO SCH (20:08)
[2022-09-21] MEDS: TraZODone HCL 50 MG TABLET PO SCH (20:08)
[2022-09-21 20:10] VITALS: BP 120/88
[2022-09-22 08:30] VITALS: BP 105/66
[2022-09-22] MEDS: HydrOXYzine PAMOATE 50 MG CAPSULE PO SCH ×3 (08:30→17:11)
[2022-09-22] MEDS: OLANZapine 10 MG TABLET PO SCH (20:10)
[2022-09-22] MEDS: TraZODone HCL 50 MG TABLET PO SCH (20:10)
[2022-09-23 00:06] VITALS: BP 108/68
[2022-09-23 05:15] VITALS: BP 103/60
[2022-09-23 08:49] VITALS: BP 109/70
[2022-09-23] MEDS: HydrOXYzine PAMOATE 50 MG CAPSULE PO SCH ×3 (09:16→16:28)
[2022-09-23 20:27] VITALS: BP 121/86
[2022-09-23] MEDS: TraZODone HCL 50 MG TABLET PO SCH (20:39)
[2022-09-23] MEDS: OLANZapine 10 MG TABLET PO SCH (20:39)
[2022-09-24 08:28] VITALS: BP 102/66
[2022-09-24] MEDS: HydrOXYzine PAMOATE 50 MG CAPSULE PO SCH ×3 (08:36→16:42)
[2022-09-24 20:09] VITALS: BP 139/84
[2022-09-24] MEDS: TraZODone HCL 50 MG TABLET PO SCH (20:34)
[2022-09-24] MEDS: OLANZapine 10 MG TABLET PO SCH (20:34)
[2022-09-25] MEDS: HydrOXYzine PAMOATE 50 MG CAPSULE PO SCH ×3 (08:01→16:32)
[2022-09-25 08:06] VITALS: BP 119/81
[2022-09-25 10:56] LABS: GLUCOMETER DEV NAME(LOC) POC.BV
[2022-09-25 20:09] VITALS: BP 120/72
[2022-09-25] MEDS: OLANZapine 10 MG TABLET PO SCH (20:30)
[2022-09-25] MEDS: TraZODone HCL 50 MG TABLET PO SCH (20:30)
[2022-09-26 08:41] VITALS: BP 114/63
[2022-09-26] MEDS: HydrOXYzine PAMOATE 50 MG CAPSULE PO SCH ×3 (09:07→16:47)
[2022-09-26] MEDS ORDERED: OLAN10 PO (10:01)
[2022-09-26] MEDS ORDERED: TRAZ-252 PO (10:01)
[2022-09-26] MEDS ORDERED: HYDR50CA7 PO (10:01)
[2022-09-26] MEDS: TraZODone HCL 50 MG TABLET PO SCH (20:11)
[2022-09-26] MEDS: OLANZapine 10 MG TABLET PO SCH (20:11)
[2022-09-26 21:10] VITALS: BP 105/63
[2022-09-27] MEDS: HydrOXYzine PAMOATE 50 MG CAPSULE PO SCH ×3 (09:27→16:42)
[2022-09-27 09:56] VITALS: BP 118/60
[2022-09-27 20:03] VITALS: BP 120/68
[2022-09-27] MEDS: OLANZapine 10 MG TABLET PO SCH (21:05)
[2022-09-27] MEDS: TraZODone HCL 50 MG TABLET PO SCH (21:05)
[2022-09-28 08:24] VITALS: BP 110/68
[2022-09-28] MEDS: HydrOXYzine PAMOATE 50 MG CAPSULE PO SCH ×3 (08:24→16:36)
[2022-09-28] MEDS: TraZODone HCL 50 MG TABLET PO SCH (20:28)
[2022-09-28] MEDS: OLANZapine 10 MG TABLET PO SCH (20:28)
[2022-09-28 20:43] VITALS: BP 103/67
[2022-09-29 08:55] VITALS: BP 109/68
[2022-09-29] MEDS: HydrOXYzine PAMOATE 50 MG CAPSULE PO SCH ×3 (09:52→16:42)
[2022-09-29] MEDS: LORazepam 2 MG TABLET PO PRN ×2 (11:51→20:25)
[2022-09-29 20:03] VITALS: BP 107/61
[2022-09-29] MEDS: OLANZapine 10 MG TABLET PO SCH (20:25)
[2022-09-29] MEDS: TraZODone HCL 50 MG TABLET PO SCH (20:25)
[2022-09-30 08:15] VITALS: BP 103/63
[2022-09-30] MEDS: HydrOXYzine PAMOATE 50 MG CAPSULE PO SCH ×3 (08:17→16:43)
[2022-09-30 08:41] LABS: GLUCOMETER DEV NAME(LOC) POC.BV
[2022-09-30] MEDS: OLANZapine 10 MG TABLET PO SCH (20:22)
[2022-09-30] MEDS: TraZODone HCL 50 MG TABLET PO SCH (20:22)
[2022-09-30 20:25] VITALS: BP 115/77
[2022-10-01 08:27] VITALS: BP 116/77
[2022-10-01] MEDS: HydrOXYzine PAMOATE 50 MG CAPSULE PO SCH ×3 (08:30→16:34)
[2022-10-01] MEDS: LORazepam 2 MG TABLET PO PRN (14:01)
[2022-10-01] MEDS: HALOPERIDOL 5 MG TABLET PO PRN (16:10)
[2022-10-01 20:11] VITALS: BP 100/64
[2022-10-01] MEDS: TraZODone HCL 50 MG TABLET PO SCH (20:31)
[2022-10-01] MEDS: OLANZapine 10 MG TABLET PO SCH (20:31)
[2022-10-02 08:28] VITALS: BP 100/64
[2022-10-02] MEDS: HydrOXYzine PAMOATE 50 MG CAPSULE PO SCH ×3 (09:35→16:37)
[2022-10-02] MEDS: LORazepam 2 MG TABLET PO PRN (11:28)
[2022-10-02] MEDS: HALOPERIDOL 5 MG TABLET PO PRN (17:00)
[2022-10-02 20:04] VITALS: BP 109/69
[2022-10-02] MEDS: TraZODone HCL 50 MG TABLET PO SCH (20:41)
[2022-10-02] MEDS: OLANZapine 10 MG TABLET PO SCH (20:41)
[2022-10-03 05:46] LABS: GLUCOMETER DEV NAME(LOC) POC.BV
[2022-10-03] MEDS: HydrOXYzine PAMOATE 50 MG CAPSULE PO SCH (08:07)
[2022-10-03 08:18] VITALS: BP 110/70
== END 2022-10-03 11:35 | DRG 885 ==
LOC: EMS 18:00 → UNDOADMIN 08-01 00:16 → B2X 08-01 00:16 → B2S 09-05 21:39 → B2X 09-06 14:47 → B2S 09-06 14:47 → B2X 09-20 19:21 → B3A 09-20 19:21 → B2X 09-21 08:38 → UNDODISIN 10-03 11:35
PROVIDERS: ADMIT Psychiatry & Neurology Psychiatry; ATTEND Psychiatry & Neurology Psychiatry
DX: F25.1 Schizoaffective disorder, depressive type (principal); F03.93 Unspecified dementia, unspecified severity, with mood disturbance; R45.851 Suicidal ideations; E03.9 Hypothyroidism, unspecified; E78.5 Hyperlipidemia, unspecified; F43.12 Post-traumatic stress disorder, chronic; F17.210 Nicotine dependence, cigarettes, uncomplicated; J45.909 Unspecified asthma, uncomplicated; Z20.822 Contact with and (suspected) exposure to COVID-19; Z59.00 Homelessness unspecified; Z79.899 Other long term (current) drug therapy; Z88.0 Allergy status to penicillin; Z88.8 Allergy status to other drugs, medicaments and biological substances
CPT/HCPCS: 80053; 84436; 84439; 84443; 84481; 85025; 87081; 99285; G0480

== ENCOUNTER 2024-04-17 11:29 | Emergency (ER) | payer MEDICARE, MEDICAID ==
[~2024-04-17] VITALS: Ht 165.1 cm; Wt 75.0 kg
[~2024-04-17 11:29] MED LIST changes: -ARIP882S2 IM; -HYDR-4808 PO; -HYDR50CA6 PO; +HYDR50CA7 PO; +OLAN10 PO
[2024-04-17 11:36] VITALS: BP 116/76; PULSE 74; RESP 16; TEMP 97.8
[2024-04-17] MEDS ORDERED: ARIP960S IM (11:41)
[2024-04-17] MEDS ORDERED: GABA-1181 PO (11:41)
[2024-04-17] MEDS ORDERED: ATOR20TA PO (11:41)
[2024-04-17] MEDS ORDERED: OLAN7.5T22 PO (11:41)
[2024-04-17] MEDS ORDERED: TRAZ-257 PO (11:41)
== END 2024-04-17 13:21 | disposition left against medical advice (07) ==
LOC: EMS 11:34
DX: F30.9 Manic episode, unspecified (principal); Z53.21 Procedure and treatment not carried out due to patient leaving prior to being seen by health care provider

== ENCOUNTER 2024-06-12 20:36 | Outpatient (CLI) | payer MEDICARE, MEDICAID ==
[~2024-06-12 20:36] MED LIST changes: +ARIP960S IM; +ATOR20TA PO; +GABA-1181 PO; -OLAN10 PO; +OLAN7.5T22 PO; -TRAZ-252 PO; +TRAZ-257 PO
[2024-06-12 22:20] VITALS: BP 114/78; PULSE 64; RESP 14; TEMP 97.6; O2SAT 100
[2024-06-13] MEDS: LORazepam 1 MG TABLET PO ONE (00:54)
[2024-06-13 08:35] VITALS: BP 103/69; PULSE 77; RESP 20; TEMP 97.4; O2SAT 98
[2024-06-13] MEDS: GABAPENTIN 300 MG CAPSULE PO SCH (09:26)
[2024-06-13] MEDS: HydrOXYzine PAMOATE 25 MG CAPSULE PO PRN (11:22)
[2024-06-13] MEDS: HydrOXYzine PAMOATE 50 MG CAPSULE PO PRN (15:58)
[2024-06-13 19:52] VITALS: BP 102/72; PULSE 69; RESP 14; TEMP 98.2; O2SAT 98
[2024-06-13] MEDS: TraZODone HCL 50 MG TABLET PO SCH (21:30)
[2024-06-13] MEDS: ATORVASTATIN CALCIUM 20 MG TABLET PO SCH (21:30)
[2024-06-13] MEDS: OLANZapine 7.5 MG TABLET PO SCH (21:31)
[2024-06-14 08:33] VITALS: BP 96/60; PULSE 76; RESP 20; TEMP 97.8; O2SAT 98
== END 2024-06-14 14:00 | disposition home or self-care (01) ==
LOC: CSU 20:36 → EDSTATUS 06-18 10:57
PROVIDERS: ATTEND Student in an Organized Health Care Education/Training Program
DX: F25.9 Schizoaffective disorder, unspecified (principal); F41.9 Anxiety disorder, unspecified; F10.21 Alcohol dependence, in remission; F15.21 Other stimulant dependence, in remission; F19.11 Other psychoactive substance abuse, in remission; Z79.899 Other long term (current) drug therapy; Z60.8 Other problems related to social environment; Z73.89 Other problems related to life management difficulty; Z91.89 Other specified personal risk factors, not elsewhere classified; Z88.0 Allergy status to penicillin; Z88.8 Allergy status to other drugs, medicaments and biological substances
CPT/HCPCS: 90839; 90840; Z7610